=== PATIENT | male | born 1975 | race Caucasian/White ===

== ENCOUNTER 2021-10-20 16:00 | Emergency (ER) | payer OTHER, SELFPAY ==
[2021-10-20 16:00] VITALS: BP 149/97; PULSE 62; RESP 18; TEMP 35.7; O2SAT 98
[2021-10-20 16:01] VITALS: BP 149/97; PULSE 62; RESP 18; TEMP 35.7; O2SAT 98; BMI 29.7
--- NOTE | 2021-10-20 16:33 | EDS_ITS ---
HPI History of Present Illness HPI Narrative: Patient presents with pain in his left hip that began today. Patient states it came on gradually. Patient states his pain is stabbing. Patient states it is mainly over the posterior aspect of his left hip. Patient states it is worse with certain movements. Patient states it is also worse with sitting and with weightbearing. Patient states nothing seems to help with the pain. Patient does admit to some tingling down his left leg into his foot. Patient denies any weakness. Patient denies any bowel or bladder changes. Patient denies any saddle anesthesia. Patient denies any back pain. Patient denies any trauma or injury. Chief Complaint: Lower Extremity Injury Informant: patient Onset/Context/Timing Onset: Today Context: Gradual Onset Timing: Continuous Quality of Pain: Stabbing Location: Left posterior hip Worsened by: Certain movements, sitting, weightbearing Relieved by: Nothing Associated Symptoms Associated Symptoms: Positive for Parasthesia; Negative for Weakness or Loss of Funtion [facility] Medical History (Updated 10/20/21 @ 18:[address] Joni Dorman DO) Anxiety Depression Home Medications gabapentin 300 mg capsule 300 mg PO TID #30 caps 10/20/21 [Rx Last Taken Unknown] naproxen 500 mg tablet 500 mg PO BID PRN #20 tabs 10/20/21 [Rx Last Taken Unknown] venlafaxine 150 mg capsule,extended release 24 hr 150 mg PO DAILY 10/20/21 [History Last Taken Unknown] Allergy/AdvReac Type Severity Reaction Status Date / Time No Known Allergies Allergy Verified 10/20/21 16:03 Social History Smoking Status: Never smoker ROS ROS ED Constitutional Constitutional ED: Denies chills or fever(s) Eyes Eyes: Denies blurry vision or change in vision ENT ENT ED: Denies rhinorrhea or sore throat Cardiovascular Cardiovascular: Denies chest pain or palpitations Respiratory/Chest Respiratory/Chest: Denies cough or dyspnea Gastrointestinal Gastrointestinal: Denies nausea or vomiting Genitourinary Genitourinary ED: Denies dysuria or hematuria Musculoskeletal Musculoskeletal: Denies back pain or neck pain Integumentary Denies abscess or rash Neurologic Neurologic: Reports paresthesias; Denies headache(s) or weakness Allergic/Immunologic Allergic/Immunologic ED: Denies mouth swelling or urticaria EXAM Physical Exam Const Vital Signs: 10/20/21 16:01 10/20/21 16:00 Temperature 96.3 F L 96.3 F L Temperature Source Temporal Temporal Pulse Rate 62 62 Respiratory Rate 18 18 Blood Pressure 149/97 H 149/97 H Blood Pressure Mean 114 114 Pulse Ox 98 98 Oxygen Delivery Method Room Air Room Air Positive well nourished and well developed General Appearance ED: well developed and NAD HEENT Reports moist mucous membranes Neck full ROM Extremity Extremity Narrative: There is tenderness over the posterior aspect of the left hip. There is tenderness over the sciatic notch. There is no bony crepitance or step-off. Range of motion of the left hip was limited secondary to pain. Pedal pulses are equal bilaterally. Strength is 5/5 bilaterally in lower extremities. There are no sensory deficits noted. Deep tendon reflexes are 2+/4 bilaterally in the lower extremities. Neuro Deep Tendon Reflexes: Rt Patellar (L4): 2+, Lt Patellar (L4): 2+, Rt Ankle (S1): 2+ and Lt Ankle (S1): 2+ Deep Tendon Reflexes Back: Rt Patellar (L4): 2+, Lt Patellar (L4): 2+, Rt Ankle (S1): 2+ and Lt Ankle (S1): 2+ Psych mental status grossly normal Skin no wounds MDM MDM MDM Narrative Medical decision making narrative: Patient was given injections of morphine, Toradol, and Norflex here. X-rays of the left hip were obtained. There are 3 views. On my interpretation, there is no acute fracture. There are mild degenerative changes. Radiologist also interpreted the x-rays and agrees. Patient is feeling somewhat better on reevaluation. Patient was given prescriptions for Naprosyn and gabapentin. Patient was instructed to follow-up with his primary care physician in 5 to 7 days. Patient was instructed to continue using ice to the area. Patient understood and was agreeable with the plan. All questions were answered. Radiography Diagnostic Testing: Clinical Impression(s) from Imaging Studies Hip/Pelvis X-Ray 10/20/21 16:45 IMPRESSION: 1. No hip fractures or dislocations. No pelvic bone fractures. 2. Very mild osteoarthritic changes of the lateral aspects of both acetabula. 3. No joint effusions. 4. No osseous inflammatory or neoplastic changes. Electronically Signed: Thiago Bentley MD at 17:17 EDT , Discharge Plan Triage Chief Complaint: Lower Extremity Injury ED Provider: Joni Dorman Dx/Rx/DC Orders Clinical Impression: Sciatica of left side Instructions: ED Sciatica Prescriptions: New naproxen 500 mg tablet 500 mg PO BID PRN Qty: 20 0RF gabapentin 300 mg capsule 300 mg PO TID Qty: 30 0RF No Action venlafaxine 150 mg capsule,extended release 24hr 150 mg PO DAILY Primary Care Provider: Perez Whalen Referrals: Perez Whalen MD [Primary Care Provider] - 3-5 Days Disposition Disposition: Home, Self Care
--- NOTE | 2021-10-20 16:45 | RAD_ITS ---
STUDY: AP PELVIS AND LEFT HIP X-RAY SERIES 1657 HOURS ON 10/20/2021 REASON FOR EXAM: 46-year-old male with left hip injury. TECHNIQUE: 3 views of the pelvis and hip. COMPARISON: None. FINDINGS: No hip fractures or dislocations. Very mild osteoarthritic changes on the lateral aspects of both acetabulum. No joint effusions. No osseous lytic, sclerotic or mass lesions are evident. There is no pelvic bone fractures. Sacroiliac joints and symphysis pubis are normal. RAD/HIP, UNI W/ Pelvis 2-3 Views IMPRESSION: 1. No hip fractures or dislocations. No pelvic bone fractures. 2. Very mild osteoarthritic changes of the lateral aspects of both acetabula. 3. No joint effusions. 4. No osseous inflammatory or neoplastic changes. Electronically Signed: Thiago Bentley MD at 17:17 EDT ,
[2021-10-20] MEDS: Orphenadrine 60 MG/2 ML Ampul IM (17:05)
[2021-10-20] MEDS: Morphine 2 MG/ML Syringe IM (17:05)
[2021-10-20] MEDS: Ketorolac 60 MG/2 ML Vial IM (17:05)
[2021-10-20 18:38] VITALS: BP 136/57; PULSE 71; RESP 15; O2SAT 97
== END 2021-10-20 18:38 | disposition home or self-care (01) ==
PROVIDERS: Emergency Provider Emergency Medicine; PCP Family Medicine; Visit Provider Emergency Medicine
DX: M54.32 Sciatica, left side (principal); F41.9 Anxiety disorder, unspecified; F32.A Depression, unspecified; Z79.899 Other long term (current) drug therapy
CPT/HCPCS: 73502; 96372; 99282

== ENCOUNTER → 2024-01-20 | Outpatient (CLI) | payer SELFPAY ==
--- NOTE | 2024-01-20 10:01 | MRI_ITS ---
STUDY: MRI CERVICAL SPINE WITHOUT CONTRAST REASON FOR EXAM: Male, 48 years old. CERVICAL DISC DISORDER AT C5-C6 LEVEL WITH RADICULOPATHY LEFT TECHNIQUE: Standardized fat and water weighted pulse sequences were obtained in the sagittal and axial planes. COMPARISON: None FINDINGS: Normal foramen magnum and brainstem-cervical cord junction. Normal craniovertebral junction. Normal anterior atlantoaxial articulation. Normal odontoid process. There is straightening of the normal cervical lordosis. Normal vertebral bodies and posterior osseous elements. C2-3: Mild left facet hypertrophy produces mild left neural foraminal stenosis. No central spinal stenosis. C3-4: Mild bilateral disc osteophyte complex and right uncovertebral hypertrophy produces moderate spinal stenosis with abutment of the right hemicord and moderate right neural foraminal stenosis. C4-5: Moderate bilobed disc osteophyte complex produces moderate spinal stenosis with abutment of the central spinal cord and moderate bilateral neural foraminal stenosis. C5-6: Mild bilateral disc osteophyte complex result in mild spinal stenosis C6-7: Mild broad disc osteophyte complex results in mild spinal stenosis and mild bilateral neural foraminal stenosis. C7-T1: Normal endplates. Normal disc height, signal and morphology. Normal central canal and intervertebral neural foramina. Normal cervical cord. Normal visualized soft tissue structures. MRI/Spine Cervical (Routine) IMPRESSION: Multilevel degenerative changes, as described above. Electronically Signed: Cornelio Murry MD at 10:27 [facility] ,
== END | disposition home or self-care (01) ==
PROVIDERS: Referring Provider Chiropractor; Visit Provider Chiropractor
DX: M50.122 Cervical disc disorder at C5-C6 level with radiculopathy (principal)
CPT/HCPCS: 72141

== ENCOUNTER → 2024-04-18 | Outpatient (CLI) | payer SELFPAY ==
--- NOTE | 2024-04-18 07:02 | US_ITS ---
PROCEDURE: ABDOMEN LIMITED REASON FOR EXAM: Right upper quadrant pain. COMPARISON: None provided. FINDINGS: Liver: The liver is measured at 50.1 cm in length. Diffuse fatty infiltration of the liver is seen.. No focal hepatic process is noted. Hepatopetal flow is seen. Gallbladder: No stones, sludge, wall thickening or tenderness. The gallbladder is measured at 7.8 cm in length. No evidence of significant gallbladder wall thickening or pericholecystic fluid collection. No sonographic Tan's sign was elicited. Common bile duct: Obscured by overlying bowel gas. Pancreas: Mostly obscured by overlying bowel gas, but without apparent abnormality. The right kidney is measured at 11.7 x 7.4 x 7.0 cm. Right renal cortex measured at 25 mm. Visualized portions of the right kidney are unremarkable. No right upper quadrant ascites. US/Abdomen Limited IMPRESSION: 1. Diffuse fatty infiltration of the liver. No evidence of hepatomegaly. 2. Both the common bile duct of the pancreas are obscured by overlying bowel ga s. 3. No evidence of acute disease. Reading Location: [id number]
== END | disposition home or self-care (01) ==
LOC: US 07:00
PROVIDERS: PCP Nurse Practitioner Family; Referring Provider Nurse Practitioner Family; Visit Provider Nurse Practitioner Family
DX: R10.11 Right upper quadrant pain (principal)
CPT/HCPCS: 76705

== ENCOUNTER → 2024-05-26 | Outpatient (CLI) | payer OTHER, SELFPAY ==
--- NOTE | 2024-05-26 08:02 | CT_ITS ---
EXAM: CT Chest With Intravenous Contrast CLINICAL INDICATION: ATELECTASIS TECHNIQUE: Axial computed tomography images of the chest with intravenous contrast. This CT exam was performed using one or more of the following dose reduction techniques: automated exposure control, adjustment of the mA and/or kV according to patient size, and/or use of iterative reconstruction technique. COMPARISON: No relevant prior studies available. FINDINGS: ARTIFACTS: Motion artifact. LUNGS AND PLEURAL SPACES: Dependent atelectasis. Otherwise, no focal consolidation pneumothorax or pleural effusion. HEART: Cardiomegaly. No significant pericardial effusion. No significant coronary artery calcifications. BONES/JOINTS: Cortical irregularity of the left 3rd rib could be a nondisplaced fracture. This is best visualized on the sagittal view on axial image 263. No dislocation. SOFT TISSUES: Unremarkable. VASCULATURE: Unremarkable. No thoracic aortic aneurysm. LYMPH NODES: Unremarkable. No enlarged lymph nodes. LIVER: Fatty liver. CT/Chest WITH Contrast IMPRESSION: 1. Cortical irregularity of the left 3rd rib could be a nondisplaced fracture. 2. Dependent atelectasis. Otherwise, no focal consolidation pneumothorax or p leural effusion. Reading Location: [facility]
== END | disposition home or self-care (01) ==
PROVIDERS: PCP Nurse Practitioner Family; Referring Provider Nurse Practitioner Family; Visit Provider Nurse Practitioner Family
DX: J98.11 Atelectasis (principal)
CPT/HCPCS: 71260; Q9967

== ENCOUNTER → 2024-05-27 | Outpatient (CLI) | payer OTHER, SELFPAY ==
--- NOTE | 2024-05-27 11:26 | NM_ITS ---
PROCEDURE: HEPATOBILLIARY IMG W/PHARM INT 05/27/2024 REASON FOR EXAM: RIGHT UPPER QUADRANT PAIN TECHNIQUE: Intravenous Choletec with planar imaging of the abdomen. RADIOPHARMACEUTICAL: 5.6 mCi of technetium labeled mebrofenin. COMPARISON: None. FINDINGS: There is good uptake of the radiopharmaceutical by the liver. Nonvisualization of the gallbladder at 2 hours. NM/Hepatobilliary Img w/Pharm Int IMPRESSION: Nonvisualization of the gallbladder up to 2 hours. Cholecystitis should be rul ed out. Reading Location: [facility]
== END | disposition home or self-care (01) ==
LOC: NM 11:24
PROVIDERS: PCP Nurse Practitioner Family; Referring Provider Nurse Practitioner Family; Visit Provider Nurse Practitioner Family
DX: R10.11 Right upper quadrant pain (principal)
CPT/HCPCS: 78227; A9537

== ENCOUNTER → 2024-06-09 | Outpatient (CLI) | payer OTHER, SELFPAY ==
[2024-06-09 12:24] LABS: AST(SGOT) 28 U/L (<=37); Alanine Aminotransfer ALT/SGPT 34 U/L (<=46); Albumin, Serum 4.4 g/dL (3.5-5.0); Alkaline Phosphatase 92 U/L (40-129); Bilirubin, Direct 0.16 mg/dL (0.00-0.30); Globulin 2.9 g/dL (2.2-4.2); Hepatitis B Surface Antigen Nonreactive (Nonreactive); Hepatitis C Antibody Nonreactive (Nonreactive); Protein, Total 7.3 g/dL (5.9-8.4); Total Bilirubin 0.53 mg/dL (0.00-1.30)
[2024-06-09 16:44] LABS: Hepatitis B Surface Antibody Nonreactive
[2024-06-10 05:07] LABS: Hepatitis A AB, Total Negative (Negative); Hepatitis B Core Ab Total Negative (Negative)
== END | disposition home or self-care (01) ==
LOC: LAB 08:43
PROVIDERS: PCP Nurse Practitioner Family; Referring Provider Nurse Practitioner Acute Care; Visit Provider Nurse Practitioner Acute Care
DX: R10.11 Right upper quadrant pain (principal); R11.0 Nausea; K76.0 Fatty (change of) liver, not elsewhere classified
CPT/HCPCS: 80076; 86704; 86706; 86708; 86803; 87340

== ENCOUNTER 2024-08-16 06:11 | Inpatient (IN) | payer OTHER, SELFPAY ==
[2024-08-16] VITALS (18 sets, daily range): BP systolic 93–175; BP diastolic 55–112; PULSE 57–79; RESP 16–18; TEMP 2.4–36.5; O2SAT 92–99; BMI 32.6; BMI 28.8
--- NOTE | 2024-08-16 06:19 | CT_ITS ---
PROCEDURE: ABDOMEN/PELVIS W IV CONT ONLY 08/16/2024 REASON FOR EXAM: CONSTIPATION, JAUNDICE TECHNIQUE: Abdomen and pelvis CT with intravenous contrast. Coronal and Sagittal reconstruction series were provided. PATIENT PREPARATION: Per protocol ORAL CONTRAST TYPE: None. CONTRAST: Isovue-350 VOLUME: 100 mL One or more dose reduction techniques were used (e.g., Automated exposure control, adjustment of the mA and/or kV according to patient size, use of iterative reconstruction technique. RADIATION DOSE SUMMARY: CTDlvol: 22.05 mGy DLP: 1360 mGycm COMPARISON: 05/27/2024. FINDINGS: 4 mm obstructing stone of the most distal aspect of the common bile duct. Dilated common bile duct measuring 13.4 mm. Diffuse thickening enhancement of the wall of the common bile duct, biliary tree and the distended, diffusely thickened gallbladder suspicious for ascending cholangitis. Associated acute inflammatory pathology of the gallbladder is considered. No evidence of perforation or abscess formation. Mild bilateral basilar atelectatic pulmonary changes. Normal liver. Normal spleen. Normal pancreas. Normal bilateral adrenal glands. Normal size of the right kidney. There is no right renal mass. There are no right renal calculi. There is no right hydronephrosis. Normal visualized right ureter. Normal size of the left kidney. There is no left renal mass. There are no left renal calculi. There is no left hydronephrosis. Normal visualized left ureter. Normal visualized stomach. Normal small intestine. Normal colon. The appendix is not visualized. No CT evidence of acute appendicitis. There is no demonstrated peritoneal fluid. Normal abdominal aorta. Normal inferior vena cava. Normal retroperitoneum. Normal urinary bladder. There is no pelvic mass lesion or lymphadenopathy. There is no pelvic fluid. Normal abdominal wall. Mild diffuse spondylosis. CT/Abdomen/Pelvis W IV Cont ONLY IMPRESSION: 4 mm obstructing stone of the most distal aspect of the common bile duct. Dilated common bile duct measuring 13.4 mm. Diffuse thickening enhancement of the wall of the common bile duct, biliary martin e and the distended, diffusely thickened gallbladder suspicious for ascending cholangitis. Associated acute inflammatory pathology of the gallbladder is also considered. No evidence of perforation or abscess formation. Mildly dilated intrahepatic biliary tree. Mild bilateral basilar atelectatic pulmonary changes. Reading Location: [place] [id number]
--- NOTE | 2024-08-16 06:20 | EX.ED.DYSGE1 ---
HPI History of Present Illness Chief Complaint: Constipation Narrative Narrative: Patient is a 49-year-old male with past medical history of anxiety, depression, Hirschsprung's disease who presented to the emergency department with chief complaint of constipation. Patient states that he has been constipated for about a week and his last bowel movement that was normal was around Thursday. He states that he tried several [id number] medications and this has not helped him and going to the bathroom. He states that he has had some intermittent nausea and vomiting associated with this. Patient states he is unsure if he has had any weight loss. 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 Bone fracture Cataracts, bilateral Anxiety Depression Home Medications ?Medication ?Instructions ?Recorded ?Last Taken ?Type venlafaxine 150 mg 150 mg PO DAILY 06/09/24 Unknown History capsule,extended release 24 hr Allergy/AdvReac Type Severity Reaction Status Date / Time No Known Allergies Allergy Verified 08/16/24 06:11 Family History Other Diabetes Heart disease Hypertension Thyroid disorder Social History Smoking Status: Never smoker alcohol intake: current Alcohol type: beer substance use type: does not use what type of physical activity do you participate in: none ROS ROS ED ROS Narrative Constitutional: Denies fevers, chills, headaches, lightness, dizziness Eyes: Denies change in vision double vision blurry vision Cardiovascular: Denies chest pain Respiratory: Denies shortness of breath Abdomen: Complains constipation as noted above and abdominal pain as well as nausea and vomiting denies diarrhea : Denies urinary symptoms Neurological: Denies numbness, weakness, tingling Musculoskeletal: Denies back pain Skin: Denies rashes or lesions EXAM Physical Exam Narrative Exam Narrative: General: Patient lying in bed rest comfortably did not appear to be in acute distress Head: Atraumatic, normocephalic Eyes: PERRL bilaterally, EOMI bilaterally, patient has conjunctival icterus noted Neck: Soft, supple, trachea midline Cardiovascular: Regular rate and rhythm Respiratory: Clear to auscultation bilaterally Abdomen: Soft, nondistended, tenderness to palpation in the epigastric region as well as the left lower quadrant no rebound or guarding on exam Extremities: +5/5 strength noted in the bilateral upper and lower extremities, radial pulses +2/4 in the bilateral extremities Neurological: Patient following commands knew that he was at [facility] the year is 2024 Skin: Warm, dry, intact no rashes or lesions noted Const Vital Signs: 08/16/24 06:11 Temperature 97.7 F L Temperature Source Oral Pulse Rate 65 Respiratory Rate 18 Blood Pressure 174/111 H Blood Pressure Mean 132 Pulse Ox 97 Oxygen Delivery Method Room Air MDM MDM MDM Narrative Medical decision making narrative: Patient is a 49-year-old male who presented to the emergency department chief complaint of constipation. On the differential diagnosis includes but not limited to constipation, AAA, cholangitis, pancreatitis, pancreatic cancer. Once workup is obtained and reviewed he will be reevaluated. Patient be given IV fluids. Patient CBC reviewed showed no evidence leukocytosis white blood count normal at 6.9, hemoglobin 16.2, platelet count normal at 209. Patient sodium normal 137, potassium normal 3.7, creatinine was 1.01. Patient glucose was 130 anion gap normal at 11. Patient's total bilirubin elevated at 6.34 with a direct bilirubin elevated to 4.67. Patient AST and ALT does show evidence of transaminitis with 194 and 649 respectively on 06/09/2024 patient's liver enzymes were normal as well as his total bilirubin and direct bilirubin. Patient lipase normal at 38. Patient's CT abdomen pelvis with IV contrast still pending therefore this will be signed out to oncoming provider to see note for details on read and disposition. Lab Data Labs: Laboratory Results - last 24 hr 08/16/24 06:28 WBC 6.9 RBC 5.20 Hgb 16.2 Hct 46.3 MCV 89.0 MCH 31.2 MCHC 35.0 RDW Std Deviation 44.9 H RDW Coeff of [place] 13.7 Plt Count 209 MPV 10.7 Immature Gran % (Auto) 0.400 Neut % (Auto) 72.4 H Lymph % (Auto) 15.7 L [place] % (Auto) 8.6 Eos % (Auto) 2.2 Baso % (Auto) 0.7 Absolute Neuts (auto) 5.0 Absolute Lymphs (auto) 1.09 Nucleated RBC % 0 Sodium 137 Potassium 3.7 Chloride 98 Carbon Dioxide 27.8 Anion Gap 11 BUN 9 Creatinine 1.01 Estim Creat Clear Calc 116.16 Est GFR (MDRD) Non-Af 91 BUN/Creatinine Ratio 9.0 L Glucose 130 H Calcium 9.1 Total Bilirubin 6.34 H Direct Bilirubin 4.67 H AST 194 H ALT 649 H Alkaline Phosphatase 223 H Total Protein 7.2 Albumin 4.3 Globulin 2.9 Albumin/Globulin Ratio 1.5 Lipase 38 Discharge Plan Triage Chief Complaint: Constipation ED Provider: Aiden Tanner Dx/Rx/DC Orders Prescriptions: No Action venlafaxine 150 mg capsule,extended release 24hr 150 mg PO DAILY Primary Care Provider: Zeny Charlton Referrals: Zeny Charlton, [employer] [Primary Care Provider] - Print Language: Turkish
[2024-08-16] MEDS: 0.9% Normal Saline (1000mL) 1,000 ML 999 ML IV (06:34)
[2024-08-16 06:36] LABS: Absolute Lymphocyte Count 1.09 X10^3/uL (0.83-4.51); Basophil# 0.05 X10^3/uL; Basophil% 0.7 % (0-1); Eosinophil# 0.15 X10^3/uL; Eosinophils% 2.2 % (0-5); Hematocrit 46.3 % (40-54); Hemoglobin 16.2 g/dL (13.0-16.5); Lymphocyte # 1.09 X10^3/ul (0.83-4.51); Lymphocyte % 15.7 % (19-41); Mean Corpuscular Hgb 31.2 pg (27.0-32.0); Mean Platelet Vol. 10.7 fl (6.2-12.0); Monocyte% 8.6 % (0-10); NRBC Flagged by Analyzer 0 % (0-5); Neutrophil # 5.02 X10^3/uL (2.7-7.7); Neutrophil % 72.4 % (47-70); Platelet Count 209 K/mm3 (150-450); RBC Distribution Width CV 13.7 % (11.6-14.6); RBC Distribution Width SD 44.9 fl (35.1-43.9); White Blood Count 6.9 K/mm3 (4.4-11.0)
--- OUTSIDE RECORDS SUMMARY | 2024-08-16 06:42 | XMS RPT_ITS | CCD ---
Author Organization [facility] Care Team Providers Care Spa Coordinator Name Role Phone Perez Whalen Unavailable Unavailable Perez Whalen Unavailable Unavailable Perez Whalen Unavailable Unavailable Unavailable Primary Care Provider UnavailLINDA Campbell Referring Unavailable Unavailable Primary Care Provider Unavailabl e Unavailable Primary Care Provider Unavailabl e System, Provider Not In Primary Care Provider Un available DANELLE HOFFMANN Referring Unava ilable STINEMETZDANELLE Admitting Unava ilable TRACY TSE Attending Unavail able SYSTEM, PROVIDER NOT IN Primary Care Unavaila ble TRACY TSE Referring Unavail able BONASSOTRACY Referring Unavail able BONASSOTRACY Referring Unavail able BONASSO, TRACY BROWN Referring Unavail able BONASSO, TRACY BROWN Referring Unavail able NO, PHYSICIAN Primary Care Unavailable DAVE CHARLTON Referring UnavailDAVE Andrew Attending Unavailzuleika Charlton BAKERY TEAM LEADER-CDave Primary Care Provider Zoltan BAKERY TEAM LEADER-Dave Fung Attending Provider Zoltan BAKERY TEAM LEADER-CDave Referring Provider Rohan BAKERY TEAM LEADER-Lana Fung Attending Provider Rohan BAKERY TEAM LEADER-Lana Fung Referring Provider Dave Charlton Primary Care UnavailDave Andrew Attending UnavailDave Andrew Referring UnavailDave Andrew Primary Care UnavailLana Rutledge Attending Unavailable Lana Madrigal Referring Unavailable Dave Charlton Primary Care Unavailabl Ehsan Gupta Attending Unavailable Dave Charlton Primary Care Dave Girard Attending Dave Girard Referring Dave Girard Primary Care UnavailLana Rutledge Attending Dave Reyes Referring Unavailabl e Care Physician, No Primary Primary Care Unava ilDanelle Sanchez Attending Danelle Beverly Referring Dave Reyes Primary Care Lakia Charlton, Dave Benitez Attending Heatherzuleika Charlton, Dave Eli Referring Unavailzuleika e Allergies Allergy Classification Reported Allergen(s) Allergy Type Date of Onset Reaction(s) Facility (1 source) No Known Medication Allergies; Translations: [No Known Medication Allergies] Propensity to adverse reactions to drug (disorder) [facility] Repository (1 source) ALLERGIES NOT ON FILE; Translations: [ALLERGIES NOT ON FILE] Propensity to adverse reactions (disorder) [facility] 2 Repository Medications Current Medications Medication Drug Class(es) Dates Sig (Normalized) Sig (Original) doxycycline monohydrate 100 mg oral capsule (2 sources) Tetracycline-class Drug Start: 04-02-2022 doxycycline monohydrate (MONODOX) 100 mg capsule 04/02/2022 Active glucosamine/msm/ch ondrt/C/hyal (GLUCOSAMINE-CHOND ROITIN-MSM ORAL) (1 source) take 3 capsules by mouth once daily glucosamine/msm/c hondrt/C/hyal (GLUCOSAMINE-ADAM DROITIN-MSM ORAL) Take 3 capsules by mouth once daily . Active lidocaine 0.05 mg/mg medicated patch (1 source) Antiarrhythmic, Amide Local Anesthetic Start: 05-09-2022 End: 05-23-2022 lidocaine (LIDODERM) 5 % Indications: Pain Apply 1 Patch as directed once daily for 14 days. Remove old patch prior to placing new patch. Location: on for 12 hours and then off for 12 hours before a new patch is palced. 14 Patch 0 05/09/2022 05/23/2022 Active Comment on above: Apply 1 Patch as dir ected once daily for 14 days. Remove old patch prior to placing new patch. Location: on for 12 hours and then off for 12 hours before a new patch is palced. ondansetron 4 mg oral tablet (1 source) Serotonin-3 Receptor Antagonist Start: 06-09-2024 take 2 tablets by mouth every two hours as needed, then take 1 tablet by mouth every four hours as needed Ondansetron Hcl 4 mg tablet Active 4 mg PO .COMPLEX June 09, 2024 12:00am 4 mg orally; take two tablets PO two hours prior to start of bowel prep and one every 4 hours as needed for N/V Sod Sulf-Pot Chloride-Mag Sulf (1 source) Start: 06-09-2024 Sod Sulf-Pot Chloride-Mag Sulf (Sutab) 1.479-0.188- 0.225 gram tablet Active 0 PO per package directions June 09, 2024 12:00am as directed for split dose bowel prep turmeric root extract 500 mg Tab (1 source) take 1 tablet by mouth once daily turmeric root extract 500 mg Tab Take 1 (one) tablet (500 mg total) by mouth once daily . Active 24 hr venlafaxine 150 mg extended release oral capsule (7 sources) Serotonin and Norepinephrine Reuptake Inhibitor Start: 04-22-2022 venlafaxine ER (EFFEXOR XR) 150 mg 24 hr capsule 04/22/2022 Active Start: 10-20-2021 End: 06-09-2024 take 1 capsule by mouth once daily Venlafaxine 150 mg capsule,extended release 24hr Active 75 mg PO DAILY June 09, 2024 7:49am Vitamin B Complex (1 source) take 1 tablet by marian th once daily b complex vitamins tablet Take 1 (one) tablet by mouth daily . Active Completed/Discontinued Medications Medication Drug Class(es) Dates Sig (Normalized) Sig (Original) gabapentin 300 mg oral capsule (3 sources) Anti-epileptic Agent Start: 10-20-2021 End: 06-09-2024 take 1 capsule by mouth three times daily Gabapentin 300 mg capsule Discontinued 300 mg PO THREE TIMES A DAY October 20, 2021 12:00am June 09, 2024 7:49am naproxen 500 mg oral tablet (3 sources) Nonsteroidal Anti-inflammatory Drug Start: 10-20-2021 End: 06-09-2024 take 1 tablet by mouth twice daily as needed Naproxen 500 mg tablet Discontinued 500 mg PO TWICE DAILY NEEDED October 20, 2021 12:00am June 09, 2024 7:49am Problems Active Problems Problem Classification Problem Date Documented Da te Episodic/Chronic Abdominal pain (3 sources) Right upper quadrant pain; Translations: [Right upper quadrant pain] Onset: 06-14-2024 06-09-2024 Episodic Headache; including migraine (1 source) Headache; Translations: [Headache] 06-09-2024 Episodic Nausea and vomiting (3 sources) Nausea; Translations: [Nausea] Onset: 06-09-2024 06-09-2024 Episodic Other connective tissue disease (7 sources) Other symptoms and signs involving the musculoskeletal system; Translations: [Other musculoskeletal symptoms referable to limbs] Onset: 02-22-2024 02-22-2024 Episodic Other gastrointestinal disorders (1 source) Finding of abdomen; Translations: [Other specified symptoms and signs involving the digestive system and abdomen] 06-09-2024 Episodic Other gastrointestinal disorders (1 source) Other specified symptoms and signs involving the digestive system and abdomen; Translations: [Other specified symptoms and signs involving the digestive system and abdomen] Onset: 06-09-2024 Episodic Other liver diseases (2 sources) Steatosis of liver; Translations: [Fatty (change of) liver, not elsewhere classified] 06-09-2024 Chronic Other liver diseases (1 source) Fatty (change of) liver, not elsewhere classified; Translations: [Fatty (change of) liver, not elsewhere classified] Onset: 06-09-2024 Chronic Other non-traumatic joint disorders (2 sources) Pain in left shoulder; Translations: [Pain in left shoulder] Onset: 03-15-2024 Episodic Other screening for suspected conditions (not mental disorders or infectious disease) (3 sources) Patient encounter status; Translations: [Encounter for screening for malignant neoplasm of colon] Onset: 06-09-2024 06-09-2024 Episodic Pleurisy; pneumothorax; pulmonary collapse (1 source) Atelectasis; Translations: [Atelectasis] Onset: 06-03-2024 Episodic Residual codes; unclassified (2 sources) Pain; Translations: [Pain, unspecified] Episodic Residual codes; unclassified (3 sources) Pain, unspecified; Translations: [Pain] Onset: 05-09-2022 Episodic Spondylosis; intervertebral disc disorders; other back problems (20 sources) Cervical disc disorder; Translations: [Cervical disc disorder, unspecified, unspecified cervical region] Onset: 02-22-2024 01-22-2024 Chronic Unclassified (3 sources) Weakness of left upper extremity 02-22-2024 Past or Other Problems Problem Classification Problem Date Documented Da te Episodic/Chronic Spondylosis; intervertebral disc disorders; other back problems (4 sources) Disorder of left sciatic nerve; Translations: [Sciatica, left side] Onset: 02-18-2024 10-28-2021 Episodic Results Test Name Value Interpretation Reference Range [facility]. COMMENT Normal . [facility] Comment on above: Order Comment: [id number] ELF TEST RED RF Result Comment: Test Ordered: [id number] Enhanced Liver Fibrosis (ELF) ELF(TM) Score 10.56 [H ] Reference Range: <9.80 ELF(TM) Score Interpretation: Risk cut-offs to assess the likelihood of progression to cirrhosis and liver-related clinical events within 3.9 years following baseline ELF score (IQR: 14.0-22.4 months)*: Lower risk < 9.80 Mid risk 9.80 - 11.29 Higher risk >11.29 Note: The ELF(TM) Score is a unitless numerical value. *Maninder SA, Fracisco VW, Alexa T, et al. Selonsertib for patients with bridging fibrosis or compensated cirrhosis due to SHAIKH: Results from randomized phase III STELLAR trials. J Hepatol. 2020 Sep;73(1):26-39. Performed at: [address] [id number] Emergency Room Doctor: Vinicius Combs MD, Phone: [phone] Performed at: [address] [id number] Emergency Room Doctor: Félix Garza PhD, Phone: [phone] Performed By: #### L 3895.2316, G600.4692, L3100.0460, L3100.0300, L3990.6549, E8759.8326, S0483.1530 #### [facility] [address] [place], [place], [id number] Hepatitis A AB, Totalon 04-0 HEPATITIS A,TOT Negative Normal Negative [facility] Comment on above: Result Comment: Comm ent: The HAV total antibody assay detects both IgG and IgM but does not differentiate between them. A negative result suggests susceptibility to infection. A positive result could be due to vaccination, previously resolved infection or active infection. Testing for HAV IgM should be performed if active HAV infection is suspected. [facility] offers profiles that will automatically reflex positive HAV total antibody results to IgM (e.g., panel #[id number] HAV Antibody w/ Rfx). Performed at: [address] [id number] Emergency Room Doctor: Félix Garza PhD, Phone: [phone] Performed By: #### L 3890.6202, L500.3400, L3100.0460, L3100.0300, L3890.6102, L3410.9998, L3890.6301 #### [facility] [address] [place], [place], [id number] Hepatitis B Core Ab Totalon 06-10-2024 HEP B CORE,TOT Negative Normal Negative [facility] Comment on above: Performed By: #### L 3890.6202, L500.3400, L3100.0460, L3100.0300, L3890.6102, L3410.9998, L3890.6301 #### [facility] [address] [place], [place], [address] Bilirubin directOrdered By: Lana Madrigal on 06-09-2024 Bilirubin.direct [Mass/Vol] 0.16 mg/dL 0.00-0.[address] [facility] Bilirubin, totalOrdered By: Lana Madrigal on 06-09-2024 Bilirubin [Mass/Vol] 0.53 mg/dL 0.00-1.30 [facility] Gastroenterology Visit Repor ton 06-09-2024 Gastroenterology Visit Report [facility] [address] [place] [address] OFFICE VISIT Date of Service: 06/09/24 MR#: [id number] Acct: [id number] Name: ROOSEVELT ELLIOTT Rep #: [id number] : 1975 Provider: AICHA bronson Age/Sex: 49/M [place] [facility] [place]: [place]igned Intake Vital Signs 10/20/21 16:01 06/09/24 07:59 Height 6 ft 1 in 6 ft 1 in Weight: 240 lb 2 oz BMI 31.6 BP 131/83 H Respiration 18 Pulse 87 Pulse Oximetry (%) 92 Oxygen Delivery Method room air Intake Visit Reasons: Abdominal complaints Chief Complaint: abdominal pain Sheep Or Calf Grader Required: No Is patient in pain?: No Allergies No Known Allergies Allergy (Verified 06/09/24 07:54) Nurse's Note: Has had abdominal pain for 3 years off and on. [facility] Medical History Bone fracture Cataracts, bilateral Anxiety Depression Family History Other Diabetes Heart disease Hypertension Thyroid disorder Social History Smoking Status: Never smoker alcohol intake: current Alcohol type: beer substance use type: does not use what type of physical activity do you participate in: none HPI HPI Chief Complaint: abdominal pain Details: ROOSEVELT ELLIOTT, is a 49 M who presents to the office today for HIDA performed 05/27/2024 nonvisualization of the gallbladder up to 2 hours. Cholecystitis should be ruled out. 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 CXR on 05/09/2024 low lung volume with bibasilar atelactasis denies any family h/o colon CA ROS Const Constitutional: No fatigue, fever(s) or weight change ENT ENT: No difficulty swallowing Gastro GI: Positive for heartburn; No abdominal pain, belching, bloating, change in bowel habits, change in stool character, coffee ground emesis, constipation, cramping, diarrhea, difficulty swallowing, feeling full early, excessive flatus, incontinent of stools, Vomiting blood/hematemesis, Blood in stool, loose stools, Black,tarry stools, nausea/dyspepsia, pain with swallowing, vomiting or other Musc Musculoskeletal: Positive for muscle weakness and sciatica; No joint pain Skin Skin: No yellowing of the eye or itchy eyes Psych Psychiatric: No anxiety and No depression Endo Endocrine: No fatigue or weight change Aller/Imm Allergy/Immunologic: No itchy eyes Brant/Lymp Hematologic/Lymphatic: No easy bleeding or easy bruising Exam Const General: cooperative, healthy appearing, no acute distress and well developed Nutritional Appearance: average body habitus and well nourished Orientation: alert and oriented x3 HENMT Head: normocephalic Ears: hearing grossly normal bilaterally Mouth: moist mucous membranes Teeth and gingiva: dentition normal Eyes Conjunctivae: conjunctivae normal Sclera: sclerae normal Neck Neck: normal visual inspection, full ROM and trachea midline Resp Effort Inspection: normal respiratory effort, able to speak in complete sentences and symmetric chest movement Auscultation: Bilateral: Clear to Auscultation Cardio Palpation: normal PMI Rate: regular rate Rhythm: regular rhythm Heart Sounds: S1 normal and S2 normal GI Inspection: normal to inspection Auscultation: normal bowel sounds Palpation: soft and no hepatosplenomegaly Rectal Exam: deferred Skin General: no rashes or lesions noted and turgor normal Neuro General: patient alert and patient oriented x3 Cranial Nerves: other (CN's grossly intact, non-focal exam) Cognition: normal cognition Speech: speech normal Gait: normal gait Extrem General: normal to inspection (no edema noted) Psych Appearance: grossly normal and well kempt Affect: normal affect Attitude: cooperative Thought Process: normal Assessment and Plan Assessment and Plan (1) Abdominal symptoms: (2) RUQ pain: Status: Acute (3) Nausea: Status: Acute (4) Steatosis, liver: Status: Acute (5) Encounter for screening colonoscopy: Status: Acute Orders: Orders Liver Profile Today K76.0 - Fatty (change of) liver, not elsewhere classified, R10.11 - Right upper quadrant pa (more content not included)... Normal [facility] HBV core Ab Ql (S)Ordered By : Lana Madrigal on 06-09-2024 Hepatitis B Core Total Antibody Negative Negative [facility] HBV surface Ab Ql (S)Ordered By: Lana Madrigal on 06-09-2024 Hepatitis B Surface Antibody Non-Reactive [facility] Comment on above: <8.5 mIU/mL: Non-Karishma ctive8.5<= x <11.5 mIU/mL: Indeterminate>=11.5 mIU/mL: Reactive Non Reactive: Inconsistent with immunity less than <10 mIU/mL Reactive: Consistent with immunity greater than or equal to 10 mIU/mL HBV surface Ag Ql (S)Ordered By: Lana Madrigal on 06-09-2024 Hepatitis B Surface Antigen Non-Reactive Nonreactive [facility] Comment on above: Reactive: Presumptiv e evidence of HBV. Repeatedly reactive samples must be confirmed using a neutralization test ([employer] HBsAg Confirmatory Test)Non-Reactive: HBsAg not detected; does not exclude the possibility of exposure to HBV Hepatitis A virus total anti body assayOrdered By: Lana Madrigal on 06-09-2024 Hepatitis A Antibody Total Negative Negative [facility] Comment on above: Comment: The HAV tot al antibody assay detects both IgG andIgM but does not differentiate between them. A negativeresult suggests susceptibility to infection. A positiveresult could be due to vaccination, previously resolvedinfection or active infection. Testing for HAV IgM shouldbe performed if active HAV infection is suspected. [facility] that will automatically reflex positive HAVtotal antibody results to IgM (e.g., panel #[id number] HAVAntibody w/ Rfx).Performed at: [facility] [id number] Director: Félix Garza PhD, Phone: [phone] Hepatitis B Surface Antibody on 06-09-2024 HEP B Surf Ab Non-Reactive Normal [facility] Comment on above: Result Comment: <8.5 mIU/mL: Non-Reactive 8.5<= x <11.5 mIU/mL: Indeterminate >=11.5 mIU/mL: Reactive Non Reactive: Inconsistent with immunity less than <10 mIU/mL Reactive: Consistent with immunity greater than or equal to 10 mIU/mL Performed By: #### L 3890.6202, L500.3400, L3100.0460, L3100.0300, L3890.6102, L3410.9998, L3890.6301 #### [facility] [address] [place], [address] Hepatitis C Antibodyon 06-09 Hepatitis C Ab Non-Reactive Normal Nonreactive [facility] Comment on above: Result Comment: Reac tive: Presumptive evidence of antibodies to HCV. Follow CDC recommendations for supplemental testing. Non-Reactive: Antibodies to HCV were not detected; does not exclude the possibility of exposure to HCV Reactive Results are presumptive evidence of antibodies to HCV. Follow CDC recommendations for supplemental testing. Order confirmation testing: HCV Quant by PCR testing - HCVPCR lc#[id number] Non Reactive: < 0.8 Equivocal: >/= 0.8 to < 1.0 Reactive: >/= 1.0 The CDC requires that a reactive/equivocal HCV antibody result be sent out for confirmation. HCV Quant by PCR testing. Performed By: #### L 3890.6202, L500.3400, L3100.0460, L3100.0300, L3890.6102, L3410.9998, L3890.6301 #### [facility] [address] [place], [place], [id number] Hepatitis C antibodyOrdered By: Lana Madrigal on 06-09-2024 Hepatitis C Antibody Non-Reactive Nonreactive [facility] Comment on above: Reactive: Presumptiv e evidence of antibodies to HCV. Follow CDC recommendations for supplemental testing.Non-Reactive: Antibodies to HCV were not detected; does not exclude the possibility of exposure to HCVReactive Results are presumptive evidence of antibodies to HCV. Follow CDC recommendations for supplemental testing.Order confirmation testing: HCV Quant by PCR testing - HCVPCR lc#[id number] Non Reactive: < 0.8 Equivocal: >/= 0.8 to < 1.0 Reactive: >/= 1.0The CDC requires that a reactive/equivocal HCV antibody result be sent out for confirmation. HCV Quant by PCR testing. L3890.6102on 06-09-2024 HEP B Surf Ag Non-Reactive Normal Nonreactive [facility] Comment on above: Result Comment: Reac tive: Presumptive evidence of HBV. Repeatedly reactive samples must be confirmed using a neutralization test ([employer] HBsAg Confirmatory Test) Non-Reactive: HBsAg not detected; does not exclude the possibility of exposure to HBV Performed By: #### L 3890.6202, L500.3400, L3100.0460, L3100.0300, L3890.6102, L3410.9998, L3890.6301 #### [facility] [address] [place], [address] Laboratory - Chemistry and C hemistry - challengeOrdered By: Lana Madrigal on 06-09-2024 AST [Catalytic activity/Vol] 28 U/L <[address] [facility] Liver Profileon 06-09-2024 Albumin [Mass/Vol] 4.4 g/dL Normal 3.5-5.0 [facility] Comment on above: Performed By: #### L 3890.6202, L500.3400, L3100.0460, L3100.0300, L3890.6102, L3410.9998, L3890.6301 #### [facility] [address] [place], [address] ALK PHOS 92 U/L Normal 40-[address] [facility] Comment on above: Performed By: #### L 3890.6202, L500.3400, L3100.0460, L3100.0300, L3890.6102, L3410.9998, L3890.6301 #### [facility] [address] [place], [address] ALT [Catalytic activity/Vol] 34 U/L Normal <=[address] [facility] Comment on above: Performed By: #### L 3890.6202, L500.3400, L3100.0460, L3100.0300, L3890.6102, L3410.9998, L3890.6301 #### [facility] [address] [place], [address] AST [Catalytic activity/Vol] 28 U/L Normal <=[address] [facility] Comment on above: Performed By: #### L 3890.6202, L500.3400, L3100.0460, L3100.0300, L3890.6102, L3410.9998, L3890.6301 #### [facility] [address] [place], [address] Bilirubin [Mass/Vol] 0.53 mg/dL Normal 0.00-1.30 [facility] Comment on above: Performed By: #### L 3890.6202, L500.3400, L3100.0460, L3100.0300, L3890.6102, L3410.9998, L3890.6301 #### [facility] [address] [place], [address] Bilirubin.direct [Mass/Vol] 0.16 mg/dL Normal 0.00-0.[address] [facility] Comment on above: Performed By: #### L 3890.6202, L500.3400, L3100.0460, L3100.0300, L3890.6102, L3410.9998, L3890.6301 #### [facility] [address] [place], [address] Globulin (S) [Mass/Vol] 2.9 g/dL Normal 2.2-4.[address] [facility] Comment on above: Performed By: #### L 3890.6202, L500.3400, L3100.0460, L3100.0300, L3890.6102, L3410.9998, L3890.6301 #### [facility] [address] [place], [address] T PROT 7.3 g/dL Normal 5.9-8.[address] [facility] Comment on above: Performed By: #### L 3890.6202, L500.3400, L3100.0460, L3100.0300, L3890.6102, L3410.9998, L3890.6301 #### [facility] [address] [place], [address] Serum globulin measurementOr dered By: Lana Madrigal on 06-09-2024 Globulin (S) [Mass/Vol] 2.9 g/dL 2.2-4.[address] [facility] Serum or plasma alanine bunch otransferase (ALT) measurementOrdered By: Lana Madrigal on 06-09-2024 ALT [Catalytic activity/Vol] 34 U/L <[address] [facility] Serum or plasma albumin moises urement (mass/volume)Ordered By: Lana Madrigal on 06-09-2024 Albumin [Mass/Vol] 4.4 g/dL 3.5-5.0 [facility] Serum or plasma alkaline navid sphatase measurementOrdered By: Lana Madrigal on 06-09-2024 ALP [Catalytic activity/Vol] 92 U/L 40-[address] [facility] Total proteinOrdered By: Sanna Madrigal on 06-09-2024 Protein [Mass/Vol] 7.3 g/dL 5.9-8.4 [facility] Hepatobilliary Img w/Pharm I nton 05-27-2024 Hepatobilliary Img w/Pharm Int [facility] Services [address] [place], [place] [id number] Hepatobilliary Img w/Pharm Int MR#: [id number] Acct: [id number] Name: ROOSEVELT ELLIOTT Rep #: [id number] : 1975 M 49 From: Wan mccurdy MD PCP: AICHA Quiroz Status: REG CLI Study: Hepatobilliary Img w/Pharm Int Date of Exam: 0 05/27/24 Exam# [id number] Ordering Dr: Dave Charlton PROCEDURE: HEPATOBILLIARY IMG W/PHARM INT 05/27/2024 REASON FOR EXAM: RIGHT UPPER QUADRANT PAIN TECHNIQUE: Intravenous Choletec with planar imaging of the abdomen. RADIOPHARMACEUTICAL: 5.6 mCi of technetium labeled mebrofenin. COMPARISON: None. FINDINGS: There is good uptake of the radiopharmaceutical by the liver. Nonvisualization of the gallbladder at 2 hours. NM/Hepatobilliary Img w/Pharm Int IMPRESSION: Nonvisualization of the gallbladder up to 2 hours. Cholecystitis should be ruled out. Reading Location: [place] [address] CC: BAKERY TEAM LEADERPerla Charlton Frozen Food Selector: Signed Normal [facility] Chest WITH Contraston 2024 Chest WITH Contrast [facility] Imaging Services [address] [place] [address] [id number] Chest WITH Contrast MR#: [id number] Acct: [id number] Name: ROOSEVELT ELLIOTT Rep #: [id number] : 1975 M 49 From: Jose Kate MD PCP: AICHA Quiroz Status: REG CLI Study: Chest WITH Contrast Date of Exam: 05/26/24 Exam# [id number] Ordering Dr: Dave Charlton EXAM: CT Chest With Intravenous Contrast CLINICAL INDICATION: ATELECTASIS TECHNIQUE: Axial computed tomography images of the chest with intravenous contrast. This CT exam was performed using one or more of the following dose reduction techniques: automated exposure control, adjustment of the mA and/or kV according to patient size, and/or use of iterative reconstruction technique. COMPARISON: No relevant prior studies available. FINDINGS: ARTIFACTS: Motion artifact. LUNGS AND PLEURAL SPACES: Dependent atelectasis. Otherwise, no focal consolidation pneumothorax or pleural effusion. HEART: Cardiomegaly. No significant pericardial effusion. No significant coronary artery calcifications. BONES/JOINTS: Cortical irregularity of the left 3rd rib could be a nondisplaced fracture. This is best visualized on the sagittal view on axial image 263. No dislocation. SOFT TISSUES: Unremarkable. VASCULATURE: Unremarkable. No thoracic aortic aneurysm. LYMPH NODES: Unremarkable. No enlarged lymph nodes. LIVER: Fatty liver. CT/Chest WITH Contrast IMPRESSION: 1. Cortical irregularity of the left 3rd rib could be a nondisplaced fracture. 2. Dependent atelectasis. Otherwise, no focal consolidation pneumothorax or pleural effusion. Reading Location: [facility] CC: AICHA Charlton Frozen Food Selector: Signed Normal [facility] XR CHEST AP/PA AND LATon XR CHEST AP/PA AND LAT EXAMINATION: XR CHEST AP/PA AND LAT HISTORY: ORDERING SYSTEM PROVIDED HISTORY: Pain in right side of chest under ribs, TECHNOLOGIST PROVIDED HISTORY: Illness/Other Reason for exam: Pain in right side of chest under ribs, Pain Cancer History: n Surgery, RadiationHistory: n Encounter Type: Initial Additional signs and symptoms: none ORDERING SYSTEM PROVIDED DIAGNOSIS CODES: R52 Pain Pain in right side of chest under ribs. COMPARISON: None. TECHNIQUE: Two-view chest x-ray. FINDINGS: Cardiac size appears unchanged. Trachea is midline. No mediastinal widening. Low lung volumes are noted with bibasilar atelectasis. No pneumothorax. No pleural effusion is identified. Osseous structures appear intact. IMPRESSION: Low lung volumes with bibasilar atelectasis. [facility] Workstation ID: [id number] Dictated by: CIELO PRESLEY on ThuMay 09, 2024 4:40:20 PM EST Transcribed by: JARED JUNE on ThuMay 09, 2024 5:02:40 PM EST Finalized by: CIELO PRESLEY on ThuMay 09, 2024 7:38:49 PM EST Normal [facility] Comment on above: Order Comment: Injur y/Trauma or Illness?:Illness/Other How long have you had these symptoms (acute/chronic)?:Acute Reason for exam?:Pain in right side of chest under ribs, Pain History of cancer?:n Surgeries, chemotherapy, or radiation?:n Type of Exam?:Initial Additional signs and symptoms?:none Abdomen Limitedon 04-18-2024 Abdomen Limited [facility] Imaging Services [address] [place], [place] [id number] Abdomen Limited MR#: [id number] Acct: [id number] Name: ROOSEVELT ELLIOTT Rep #: [id number] : 1975 M 49 From: Perez Wolf PCP: AICHA Quiroz Status: DEP CLI Study: Abdomen Limited Date of Exam: 04/18/24 Exam# [id number] Ordering Dr: Dave Chalrton BAKERY TEAM LEADER-C ADDENDUM by Dr. Perez Streeter MD on 06/20/24 at 1033 Correction: Liver measured at 15.1 cm in length. Reading Location: [id number] 06/20/24 1033 Date cc: AICHA Charlton * Signed PROCEDURE: ABDOMEN LIMITED REASON FOR EXAM: Right upper quadrant pain. COMPARISON: None provided. FINDINGS: Liver: The liver is measured at 50.1 cm in length. Diffuse fatty infiltration of the liver is seen.. No focal hepatic process is noted. Hepatopetal flow is seen. Gallbladder: No stones, sludge, wall thickening or tenderness. The gallbladder is measured at 7.8 cm in length. No evidence of significant gallbladder wall thickening or pericholecystic fluid collection. No sonographic Tan's sign was elicited. Common bile duct: Obscured by overlying bowel gas. Pancreas: Mostly obscured by overlying bowel gas, but without apparent abnormality. The right kidney is measured at 11.7 x 7.4 x 7.0 cm. Right renal cortex measured at 25 mm. Visualized portions of the right kidney are unremarkable. No right upper quadrant ascites. US/Abdomen Limited IMPRESSION: 1. Diffuse fatty infiltration of the liver. No evidence of hepatomegaly. 2. Both the common bile duct of the pancreas are obscured by overlying bowel gas. 3. No evidence of acute disease. Reading Location: [address] CC: AICHA Charlton Frozen Food Selector: Signed Normal [facility] Spine Cervical (Routine)on 03-21-2023 Spine Cervical (Routine) [facility] Imaging Services [address] [place] [address] [id number] Spine Cervical (Routine) MR#: [id number] Acct: [id number] Name: ROOSEVELT ELLIOTT Rep #: [id number] : 1975 M 48 From: Cornelio Murry MD PCP: Care Physician,No Primary Status: REG CLI Study: Spine Cervical (Routine) Date of Exam: Exam# [id number] Ordering Dr: Danelle Hoffmann [id number] STUDY: MRI CERVICAL SPINE WITHOUT CONTRAST REASON FOR EXAM: Male, 48 years old. CERVICAL DISC DISORDER AT C5-C6 LEVEL WITH RADICULOPATHY LEFT TECHNIQUE: Standardized fat and water weighted pulse sequences were obtained in the sagittal and axial planes. COMPARISON: None FINDINGS: Normal foramen magnum and brainstem-cervical cord junction. Normal craniovertebral junction. Normal anterior atlantoaxial articulation. Normal odontoid process. There is straightening of the normal cervical lordosis. Normal vertebral bodies and posterior osseous elements. C2-3: Mild left facet hypertrophy produces mild left neural foraminal stenosis. No central spinal stenosis. C3-4: Mild bilateral disc osteophyte complex and right uncovertebral hypertrophy produces moderate spinal stenosis with abutment of the right hemicord and moderate right neural foraminal stenosis. C4-5: Moderate bilobed disc osteophyte complex produces moderate spinal stenosis with abutment of the central spinal cord and moderate bilateral neural foraminal stenosis. C5-6: Mild bilateral disc osteophyte complex result in mild spinal stenosis C6-7: Mild broad disc osteophyte complex results in mild spinal stenosis and mild bilateral neural foraminal stenosis. C7-T1: Normal endplates. Normal disc height, signal and morphology. Normal central canal and intervertebral neural foramina. Normal cervical cord. Normal visualized soft tissue structures. MRI/Spine Cervical (Routine) IMPRESSION: Multilevel degenerative changes, as described above. Electronically Signed: Cornelio Murry MD at 10:27 [facility] , CC: BERE Hoffmann; No Primary Care Physician Frozen Food Selector: Signed Normal [facility] CNOVon 05-09-2022 CNOV Office Visit (UCWSTR ) ROOSEVELT ELLIOTT ([id number]) 1975 M Date Time Provider Department 05/09/22 9:30 AM LINDA WALLER [facility] During your visit today, we recorded the following information about you: Temperature Pulse Respiration Blood pressure 98.2 degrees 96/minute 18/minute 148/90 Linda Waller APRN.SHEET ROCK TAPER 05/09/2022 11:28 AM Signed Subjective Came in with complaints of severe right knee pain. Patient says he cannot bear weight on it. Patient says its been escalating for the last 10 days. Patient says he was having trouble with his left leg since November and started physical therapy in April for it. Patient says the left leg is much better. Patient denies any numbness tingling burning feeling loss of feeling in the right. The history is provided by the patient. No car changer was used. Review of Systems Constitutional: Negative. Skin: Negative. Objective Physical Exam Constitutional: Appearance: Normal appearance. Pulmonary: Effort: Pulmonary effort is normal. Musculoskeletal: Legs: Comments: Patient has no swelling or deformities or discoloration noted in the right knee. Pain is not reproducible upon palpation. Patient says performing range of motion does not cause the pain just weightbearing. Neurological: Mental Status: He is alert. No past medical history on file. No past surgical history on file. ALLERGIES Patient has no known allergies. MEDICATIONS venlafaxine ER (EFFEXOR XR) 150 mg 24 hr capsule doxycycline monohydrate (MONODOX) 100 mg capsule (Patient not taking: Reported on 05/09/2022) No family history on file. Social History Tobacco Use Smoking status: Never Smokeless tobacco: Never Substance Use Topics Drug use: Never ASSESSMENT/PLAN: 1. Pain - ICD9: 780.96, ICD10: R52 - XR KNEE GENERAL 4V AP BOTH/PA BOTH/LAT/MERC RIGHT - CONSULT TO ORTHOPAEDICS * * * * Physician Interpretation * * * * PROCEDURE: Right knee INDICATION: Pain .No injury, Anterior right knee pain x several weeks. Starting yesterday the pain became so severe he is unable to put any pressure or completely straighten the knee. TECHNIQUE: XR KNEE 4V AP/PA BOTH+LAT/MONIQUE RT COMPARISON: None FINDINGS: Mild tricompartment marginal spur formation without significant joint space narrowing. No fracture, dislocation or osseous lesion. Small suprapatellar joint effusion. Mild degenerative change in the left knee, slightly greater than on the right. IMPRESSION IMPRESSION: Mild degenerative change and small joint effusion. Frozen Food Selector: IVANA Transcribe Date/Time: May 09 2022 10:49A Dictated by : CHRISTIN VICKERS MD Lidoderm pain patches prescribed. Patient was instructed to ice and elevate. Alternate Tylenol and Motrin. Patient was set up Thursday with an orthopedic follow-up for pain. Patient was okay with this care plan. Patient already has his own crutches. Linda Waller APRN.SHEET ROCK TAPER Allergies As of Date: 05/09/2022 (No Known Allergies) Date Reviewed: 05/09/2022 Reviewed by: Laura Dunn LPN - Fully Assessed Reason for Visit: Pain [78] Cmt: Pt reported (RT) knee pain rated 8, x10 days denied accident injury. Primary Visit Diagnosis:Pain [R52] Order(s):XR KNEE GENERAL 4V AP BOTH/PA BOTH/LAT/MERC RIGHT [3413836] Order #: [id number] FUTURE CONSULT TO ORTHOPAEDICS [9026] Order #: [id number]: 1 FUTURE lidocaine (LIDODERM) 5 %Apply 1 Patch as directed once daily for 14 days. Remove old patch prior to placing new patch. Location: on for 12 hours and then off for 12 hours before a new patch is palced.Disp: 14 PatchRfl: 0 Prescriptions as of 05/09/2022 - venlafaxine ER (EFFEXOR XR) 150 mg 24 hr capsule - doxycycline monohydrate (MONODOX) 100 mg capsule - lidocaine (LIDODERM) 5 % Apply 1 Patch as directed once daily for 14 days. Remove old patch prior to placing new patch. Location: on for 12 hours and then off for 12 hours before a new patch is palced. Problem List As Of Date: 05/09/2022 (None) Prescriptions ordered this encounter Disp Refills Start End LIDOCAINE 5 % TOPICAL PATCH 14 P* 0 05/09/2022 05/23/2022 Route: TRANSDERM. Sig: Apply 1 Patch as directed once daily for 14 days. Remove old patch prior to placing new patch. Location: on for 12 hours and then off for 12 hours before a new patch is palced. Encounter Status:Closed by LINDA WALLER on 05/09/[address] [facility] XR KNEE 4V AP/PA BOTH+LAT/ME R RTon 05-09-2022 XR KNEE 4V AP/PA BOTH+LAT/MONIQUE RT * * *Final Report* * * DATE OF EXAM: May 09 2022 10:34AM WOX 5203 - XR KNEE 4V AP/PA BOTH+LAT/MONIQUE RT / PROCEDURE REASON: Pain * * * * Physician Interpretation * * * * PROCEDURE: Right knee INDICATION: Pain .No injury, Anterior right knee pain x several weeks. Starting yesterday the pain became so severe he is unable to put any pressure or completely straighten the knee. TECHNIQUE: XR KNEE 4V AP/PA BOTH+LAT/MONIQUE RT COMPARISON: None FINDINGS: Mild tricompartment marginal spur formation without significant joint space narrowing. No fracture, dislocation or osseous lesion. Small suprapatellar joint effusion. Mild degenerative change in the left knee, slightly greater than on the right. IMPRESSION: Mild degenerative change and small joint effusion. Frozen Food Selector: PSCB Transcribe Date/Time: May 09 2022 10:49A Dictated by : CHRISTIN VICKERS MD This examination was interpreted and the report reviewed and electronically signed by: CHRISTIN VICKERS MD on May 09 2022 10:50AM EST [id number] Normal [facility] XR KNEE GENERAL 4V AP BOTH/P A BOTH/LAT/MERC RIGHTon 05-09-2022 [facility] XR Knee - right 4 Viewson IMPRESSION: Mild degenerative change and small joint effusion. Frozen Food Selector: IVANA Transcribe Date/Time: May 09 2022 10:49A Dictated by : CHRISTIN VICKERS MD This examination was interpreted and the report reviewed and electronically signed by: CHRISTIN VICKERS MD on May 09 2022 10:50AM [facility] DIVISION OF RADIOLOGY * * *Final Report* * * DATE OF EXAM: May 09 2022 10:34AM WOX 5203 - XR KNEE 4V AP/PA BOTH+LAT/MONIQUE RT / PROCEDURE REASON: Pain * * * * Physician Interpretation * * * * PROCEDURE: Right knee INDICATION: Pain .No injury, Anterior right knee pain x several weeks. Starting yesterday the pain became so severe he is unable to put any pressure or completely straighten the knee. TECHNIQUE: XR KNEE 4V AP/PA BOTH+LAT/MONIQUE RT COMPARISON: None FINDINGS: Mild tricompartment marginal spur formation without significant joint space narrowing. No fracture, dislocation or osseous lesion. Small suprapatellar joint effusion. Mild degenerative change in the left knee, slightly greater than on the right. DIVISION OF RADIOLOGY Provider, [facility] - 05/09/2022 * * *Final Report* * * DATE OF EXAM: May 09 2022 10:34AM WOX 5203 - XR KNEE 4V AP/PA BOTH+LAT/MONIQUE RT / PROCEDURE REASON: Pain * * * * Physician Interpretation * * * * PROCEDURE: Right knee INDICATION: Pain .No injury, Anterior right knee pain x several weeks. Starting yesterday the pain became so severe he is unable to put any pressure or completely straighten the knee. TECHNIQUE: XR KNEE 4V AP/PA BOTH+LAT/MONIQUE RT COMPARISON: None FINDINGS: Mild tricompartment marginal spur formation without significant joint space narrowing. No fracture, dislocation or osseous lesion. Small suprapatellar joint effusion. Mild degenerative change in the left knee, slightly greater than on the right. IMPRESSION IMPRESSION: Mild degenerative change and small joint effusion. Frozen Food Selector: IVANA Transcribe Date/Time: May 09 2022 10:49A Dictated by : CHRISTIN VICKERS MD This examination was interpreted and the report reviewed and electronically signed by: CHRISTIN VICKERS MD on Mar 3 2023 10:50AM [facility] Radiology Study observation (narrative) [facility] XR Knee - right 4 ViewsOrder ed By: [facility] Provider on 05-09-2022 [facility] XR Spine Lumbar w/ Obliqueso n 09-19-2016 XR Spine Lumbar w/ Obliques Exam Date/Time:09/19/2016 09:31 EDTReason for Exam:low back painReportXR SPINE LUMBAR W/ OBLIQUES, 09/19/2016 9:18 AMCLINICAL STATEMENT: Low back pain for 6 months. No known injury.COMPARISON: X-ray lumbar spine 10/01/2012.FINDINGS: Five views of the lumbar spine were obtained. Five lumbar-typevertebrae are present. The vertebral body heights and disc spaces aremaintained. There is no evidence of acute fracture or subluxation. There isdisc space narrowing at the lumbosacral junction with mild endplate sclerosis.There is suggestion of incomplete fusion of the posterior elements of thesacrum. Mild facet hypertrophy noted at L4-L5. The pedicles appear intact.Visualized portions of the bony pelvis are unremarkable. Abdominal soft tissueswithin normal limits.IMPRESSION:Mild degenerative disc disease at the lumbosacral junction without acuteabnormality of the lumbar spine. FINAL REPORT Dictated: 09/19/2016 6:38 pm Barrett Lozano MD LSigned (Electronic Signature): 09/19/2016 6:38 pmSigned by: Barrett Lozano MD Technologist: [facility] Vital Signs Date Time Vital Sign Value Performing Clinician Facility 06-09-2024 07:59-0400 Body height 185.42 cm Dave HOLCOMB Work Phone: [facility] 06-09-2024 07:59-0400 Body mass index (BMI) [Ratio] 31.6 kg/m2 Dave VALDEZC Work Phone: [facility] 06-09-2024 07:59-0400 Body weight 108.91 kg Dave HOLCOMB Work Phone: [facility] 06-09-2024 07:59-0400 Diastolic blood pressure 83 mm[Hg] Dave VALDEZC Work Phone: [facility] 06-09-2024 07:59-0400 Heart rate 87 /min Dave Zoltan BAKERY TEAM LEADER-C Work Phone: [facility] 06-09-2024 07:59-0400 Respiratory rate 18 /min Dave Charlton BAKERY TEAM LEADER-C Work Phone: [facility] 06-09-2024 07:59-0400 SaO2% (BldA) [Mass fraction] 92 % Dave Zoltan BAKERY TEAM LEADER-C Work Phone: [facility] 06-09-2024 07:59-0400 Systolic blood pressure 131 mm[Hg] Dave Zoltan BAKERY TEAM LEADER-C Work Phone: [facility] 02-22-2024 13:21-0500 Body weight 110.22 kg Tracy Tse MD Work Phone: [facility] 05-09-2022 09:41-0500 Body temperature 98.2 [degF] Linda Waller APRN.SHEET ROCK TAPER Work Phone: [facility] 05-09-2022 09:41-0500 Diastolic blood pressure 90 mm[Hg] Linda Waller APRN.SHEET ROCK TAPER Work Phone: [facility] 05-09-2022 09:41-0500 Heart rate 96 /min Linda Waller APRN.SHEET ROCK TAPER Work Phone: [facility] 05-09-2022 09:41-0500 Respiratory rate 18 /min Linda Waller APRN.SHEET ROCK TAPER Work Phone: [facility] 05-09-2022 09:41-0500 SaO2% (BldA) [Mass fraction] 97 % Linda Waller APRN.SHEET ROCK TAPER Work Phone: [facility] 05-09-2022 09:41-0500 Systolic blood pressure 148 mm[Hg] Linda Waller APRN.SHEET ROCK TAPER Work Phone: [facility] Encounters Encounter Date Encounter Type Care Provider Facility Start: 09-28-2024 ambulatory Dave Charlton Facility:[facility] Start: 06-09-2024 End: 06-09-2024 ambulatory Daveduong Benitez Zoltan BAKERY TEAM LEADER-C Work Phone: [facility] Work Phone: Start: 06-09-2024 End: 06-09-2024 Patient encounter procedure Lana Madrigal BAKERY TEAM LEADER-C -Laboratory Work Phone: Start: 06-09-2024 End: 06-09-2024 Patient encounter procedure Lana Madrigal BAKERY TEAM LEADER-C -[facility] Work Phone: Start: 06-09-2024 End: 06-09-2024 ambulatory Dave Charlton Facility[place] Start: 06-09-2024 End: 06-09-2024 ambulatory Dave Charlton Facility:[facility] Start: 05-27-2024 End: 05-27-2024 ambulatory Dave Eli Smith BAKERY TEAM LEADER-C Work Phone: [facility] Work Phone: Start: 05-27-2024 End: 05-27-2024 Patient encounter procedure Dave Zoltan BAKERY TEAM LEADER-C -Nuclear Medicine, [facility] Work Phone: Start: 05-26-2024 End: 05-27-2024 ambulatory Daveduong Benitez Zoltan BAKERY TEAM LEADER-C Work Phone: [facility] Work Phone: Start: 05-26-2024 End: 05-26-2024 Patient encounter procedure Dave Zoltan EGAN-C -Cat Scan, [facility] Work Phone: Start: 05-26-2024 End: 05-26-2024 ambulatory Dave Charlton Facility:[facility] Start: 05-09-2024 End: 05-09-2024 ambulatory PHYSICIAN [facility] Start: 04-18-2024 End: 04-18-2024 Patient encounter procedure Dave Zoltan BAKERY TEAM LEADER-C -Ultrasound, [facility] Work Phone: Start: 04-18-2024 End: 04-18-2024 ambulatory Dave Charlton Facility:[facility] Start: 04-11-2024 End: 04-11-2024 ambulatory [facility] Start: 04-04-2024 End: 04-04-2024 ambulatory [facility] Start: 03-28-2024 End: 03-28-2024 ambulatory [facility] Start: 03-21-2024 End: 03-21-2024 ambulatory [facility] Start: 03-15-2024 End: 03-15-2024 ambulatory [facility] Start: 02-22-2024 End: 02-22-2024 Office outpatient new 30 minutes Danelle Hoffmann [place] Work Phone: [facility], Neuroscience Comment on above: HNP (herniated nucle us pulposus), cervical (Primary Dx); Weakness of left upper extremity; Cervical spondylosis Start: 02-22-2024 End: 02-22-2024 ambulatory DANELLE HOFFMANN [facility] Start: 01-22-2024 End: 01-22-2024 Transcribe Orders Meredith Laureano RN [facility] Physician [facility], Neuroscience Comment on above: Cervical disc disord er (Primary Dx) Start: 01-20-2024 End: 01-20-2024 ambulatory No Primary Care Physician Facility:[facility] Start: 05-09-2022 End: 05-09-2022 ambulatory LINDA WALLER Facility:[facility] Start: 05-09-2022 End: 05-09-2022 Subsequent hospital visit by physician Xr [facility] Work Phone: Radiology Comment on above: Pain [R52] Start: 05-09-2022 End: 05-09-2022 Patient encounter procedure Linda Waller 911 OPERATOR.SHEET ROCK TAPER Work Phone: [facility] Comment on above: Pain (Primary Dx) Start: 09-19-2016 End: 09-20-2016 Ambulatory Perez Whalen Facility:[facility] Procedures Date Procedure Procedure Detail Performing Clinician Start: 05-27-2024 Radionuclide study o f abdomen Dave Charlton BAKERY TEAM LEADERSurajC Work Phone: Start: 05-26-2024 CT of thorax with contrast Dave Charlton COURTNEYC Work Phone: Start: 04-18-2024 Ultrasonography of abdomen Dave Charlton COURTNEYC Work Phone: Start: 05-09-2022 Radiologic exam knee complete 4/more views Linda Waller APRN.CNP Work Phone: Plan of Treatment Date Care Activity Detail Author Start: 04-23-2028 Urine microalbumin profile DTaP,Tdap,Td Vaccine (6 - Td or Tdap) [facility] Start: 11-08-2023 COVID-19 Vaccine () COVID-19 Vaccine () [facility] Start: 11-08-2023 Covid-19 Vaccine () Covid-19 Vaccine () [facility] Start: 11-08-2023 Influenza vaccination Influenza Vaccine (#1) [facility] Start: 03-09-2022 DEPRESSION ASSESSMENT DEPRESSION ASSESSMENT [facility] Start: 04-24-2021 COVID-19 VACCINE (4 - Booster for Moderna series) COVID-19 VACCINE (4 - Booster for Moderna series) [facility] Start: 01-28-2020 COLOGUARD (FIT-DNA) COLOGUARD (FIT-DNA) [facility] Start: 01-28-2020 Colonoscopy COLONOSCOPY [facility] Start: 01-28-2020 COLORECTAL CANCER SCREENING COLORECTAL CANCER SCREENING [facility] Start: 01-28-[address] COLONOGRAPHY [facility] Start: 01-28-2020 DIABETES SCREEN DIABETES SCREEN [facility] Start: 01-28-2020 Diabetes Screening Diabetes Screening [facility] Start: 01-28-2020 FECAL OCCULT BLOOD FECAL OCCULT BLOOD [facility] Start: 01-28-2020 Screening for malignant neoplasm of colon [facility] Start: 01-28-2020 SIGMOIDOSCOPY SIGMOIDOSCOPY [facility] Start: 2010 Lipid panel Lipid Screening [facility] Start: 2010 LIPID SCREEN LIPID SCREEN [facility] Start: 1994 Hepatitis B Vaccine (1 of - 19+ 3-dose series) Hepatitis B Vaccine (1 of 3 - 19+ 3-dose series) [facility] Start: 1994 Urine microalbumin profile DTAP,TDAP,TD (1 - Tdap) [facility] Start: 1993 Anxiety Screening Anxiety Screening [facility] Start: 1993 Depression Screening Depression Screening [facility] Start: 1993 HEPATITIS C SCREENING HEPATITIS C SCREENING [facility] Start: 1993 Hepatitis C screening Hepatitis C Screening [facility] Start: 1993 HIV SCREENING HIV SCREENING [facility] Start: 1993 HIV screening HIV Screening [facility] Start: 1990 HIV screening HIV Screening [facility] Start: 1987 Depression screening using PHQ-9 (Patient Health Questionnaire 9) score Depression Screening/Follow-Up (PHQ-2/9) [facility] [facility] History and physical examination, annual for health maintenance Wellness Visit [facility] Start: 1975 HEPATITIS B (1 of 3 - 3-dose series) HEPATITIS B (1 of 3 - 3-dose series) [facility] Start: 1975 Prostate specific antigen measurement PSA Level [facility] Start: 1975 Screening for malignant neoplasm of colon [facility] Start: 1975 Tetanus vaccination Tetanus: Every 10yrs [facility] Ultrasound elastography [facility] Immunizations Immunization Date Immunization Notes Care Provider Vilma xavier 02-07-2022 influenza virus vacc ine, unspecified formulation Xr Janet Work Phone: [facility] Payers Date Payer Category Payer Self-pay 2024 Unknown [id number] 2023 Managed Care POS (unspecified) [employer] CHOICE POS/POSII/PREMIER CARE/PREMIER CARE PLUS [id number] 2022 Private Health Insurance [id number] 2016 Unknown 2014 Unknown [id number] 1975 Unknown [id number] 2.16.840.1.941366.3.579. 2.903 1975 Unknown [id number] 2.16.840.1.558164.3.579. 2.1243 1975 Unknown [id number] 2.16.840.1.502579.3.579. 2.1243 1975 Unknown [id number] 2.16.840.1.889563.3.579. 2.1243 1975 Unknown [id number] 2.16.840.1.949543.3.579. 2.1243 1975 Unknown [id number] 2.16.840.1.507201.3.579. 2.1243 1975 Unknown [id number] 2.16.840.1.341680.3.579. 2.902 Unknown [id number] 2.16.840.1.826322.3.579. 2.462 Unknown [id number] 2.16.840.1.677060.3.579. 2.462 Unknown [id number] 2.16.840.1.810102.3.579. 2.462 Unknown [id number] 2.16.840.1.340809.3.579. 2.462 Unknown [id number] 2.16.840.1.257838.3.579. 2.462 Unknown [id number] 2.16.840.1.268857.3.579. 2.462 Unknown [id number] 2.16.840.1.735090.3.579. 2.462 Social History Date Type Detail Facility Start: 05-09-2022 End: 06-09-2024 Tobacco smoking status NHIS Never smoked tobacco [facility] Start: 05-09-2022 End: 02-29-2024 Tobacco use and exposure Smokeless tobacco non-user [facility] Start: 1975 Sex Assigned At Not on file [facility] Start: 05-09-2022 History of Social function [facility] Start: 05-09-2022 Tobacco use panel [facility] Tobacco smoking status NHIS Tobacco smoking consumption unknown [facility] Start: 06-03-2024 End: 06-14-2024 Sex Male (finding) [facility] Start: 1975 Sex Assigned At Male W [facility] Clinical Notes 05-09-2022 to 06-09-2024 Note Date & Type Note Facility 06-09-2024 Evaluation note Diagnosis Onset Date Resolution Encounter for screening colonoscopy acute June 09, 2024 7:38am Nausea acute June 09 7:38am RUQ pain acute June 09 7:38am Steatosis, liver acute June 7:38am Abdominal symptoms noneactive June 09, 2024 7:38am [facility] Work Phone: 1(326) 299-913203-21-2025 Nuclear medicine Diagnostic study note [facility] Imaging Services [address] [place] [address] [id number] Hepatobilliary Img w/Pharm Int MR#: [id number] Acct: [id number] Name: ROOSEVELT ELLIOTT Rep #: [id number] : 1975 M 49 From: Gagandeep Cabrera MD PCP: AICHA Quiroz Status: REG CLI Study:Hepatobilliary Img w/Pharm Int Date of Exam: 05/27/24 Exam# [id number] Ordering Dr: Sa chey Charlton PROCEDURE: HEPATOBILLIARY IMG W/PHARM INT 05/27/2024 REASON FOR EXAM: RIGHT UPPER QUADRANT PAIN TECHNIQUE: Intravenous Choletec with planar imaging of the abdomen. RADIOPHARMACEUTICAL: 5.6 mCi of technetium labeled mebrofenin. COMPARISON: None. FINDINGS: There is good uptake of the radiopharmaceutical by the liver. Nonvisualization of the gallbladder at 2 hours. NM/Hepatobilliary Img w/Pharm Int IMPRESSION: Nonvisualization of the gallbladder up to 2 hours. Cholecystitis should be ruled out. Reading Location: [place] [address] CC: BAKERY TEAM LEADERSurajC Dave Charlton ~ Frozen Food Selector: Signed [facility]03-20-2025 Radiology Diagnostic study note [facility] Imaging Services [address] [place], [place] [address] Chest WITH Contrast MR#: [id number] Acct: [id number] Name: ROOSEVELT ELLIOTT Rep #: [id number] : 1975 M 49 From: Terrie Kate MD PCP: AICHA Quiroz Status: REG CLI Study:Chest WITH Contrast Date of Exam: 05/26/24 Exam# [id number] Ordering Dr: Sa chey Charlton EXAM: CT Chest With Intravenous Contrast CLINICAL INDICATION: ATELECTASIS TECHNIQUE: Axial computed tomography images of the chest with intravenous contrast. This CT exam was performed using one or more of the following dose reduction techniques: automated exposure control, adjustment of the mA and/or kV according to patient size, and/or use of iterative reconstruction technique. COMPARISON: No relevant prior studies available. FINDINGS: ARTIFACTS: Motion artifact. LUNGS AND PLEURAL SPACES: Dependent atelectasis. Otherwise, no focal consolidation pneumothorax or pleural effusion. HEART: Cardiomegaly. No significant pericardial effusion. No significant coronary artery calcifications. BONES/JOINTS: Cortical irregularity of the left 3rd rib could be a nondisplacedfracture. This is best visualized on the sagittal view on axial image 263. No dislocation. SOFT TISSUES: Unremarkable. VASCULATURE: Unremarkable. No thoracic aortic aneurysm. LYMPH NODES: Unremarkable. No enlarged lymph nodes. LIVER: Fatty liver. CT/Chest WITH Contrast IMPRESSION: 1. Cortical irregularity of the left 3rd rib could be a nondisplaced fracture. 2. Dependent atelectasis. Otherwise, no focal consolidation pneumothorax or pleural effusion. Reading Location: [facility] CC: AICHA Charlton ~ Frozen Food Selector: Signed [facility]12-23-2024 Note* Addendum Note - Shauna Ugarte RN - 02/29/2024 2:09 PM ESTAddended by: SHAUNA UGARTE on: 02/29/2024 02:09 PM Modules accepted: Orders [id number] Miscellaneous Notes* Addendum Note - Shauna Ugarte RN - 02/29/2024 2:09 PM ESTAddended by: SHAUNA UGARTE on: 02/29/2024 02:09 PM Modules accepted: Orders documented in this [id number] KapilNI ROOSEVELTJOEL MAY [id number] 1975 DATE DANELLE HOFFMANN DC [address] [place] [id number] REFERRING PHYSICIAN DANELLE HOFFMANN DC ATTENDING PHYSICIAN TRACY TSE MD PRIMARY CARE PHYSICIAN PROVIDER NOT IN SYSTEM ADMITTING PHYSICIAN DANELLE HOFFMANN DC Dear Dr. Hoffmann: Thank you for sending Mr. Elliott for an evaluation of left upper extremity weakness. He denies any pain or paresthesias. He had profound weakness in the deltoid and biceps, which has improved with acupuncture. PAST MEDICAL AND SURGICAL HISTORY Noncontributory. ALLERGIES He has no known drug allergies. PHYSICAL EXAMINATION Shows left biceps weakness at 2/5, deltoid weakness at 2/5 to 3-/5, and triceps weakness in the 3+/5 to 4-/5 range. The rest of his exam is intact. IMAGING MRI scanning shows multilevel cervical disk bulging from C4-5 to C6-7. DIAGNOSES Left upper extremity postviral brachial radiculitis resolving, incidental cervical spondylosis. TREATMENT OPTIONS AND PLAN I told Mr. Elliott he does not need any surgery for his neck. This seems to be a [place]-Villeda variant. I encouraged physical therapy, and I gave him a prescription for this. He knows to call me if he develops any new symptoms. Thank you very much. Sincerely, TRACY TSE MD D 02/22/2024 13:33 [id number] T 02/22/2024 20:04 CLB/MODL cc: Dave Charlton CNP AUTHENTICATED BY TRACY TSE, ON 02/24/2024 11:06:27[facility]12-16-2024 History of Present illness Narrative* Tracy Tse MD - 02/22/2024 9:05 PM EST ROOSEVELT ELLIOTT [facility] [id number] 1975 DATE DANELLE HOFFMANN DC [address] [place] [id number] REFERRING PHYSICIAN DANELLE HOFFMANN DC ATTENDING PHYSICIAN TRACY TSE MD PRIMARY CARE PHYSICIAN PROVIDER NOT IN SYSTEM ADMITTING PHYSICIAN DANELLE HOFFMANN DC Dear Dr. Hoffmann: Thank you for sending Mr. Elliott for an evaluation of left upper extremity weakness. He denies any pain or paresthesias. He had profound weakness in the deltoid and biceps, which has improved with acupuncture. PAST MEDICAL AND SURGICAL HISTORY Noncontributory. ALLERGIES He has no known drug allergies. PHYSICAL EXAMINATION Shows left biceps weakness at 2/5, deltoid weakness at 2/5 to 3-/5, and triceps weakness in the 3+/5 to 4-/5 range. The rest of his exam is intact. IMAGING MRI scanning shows multilevel cervical disk bulging from C4-5 to C6-7. DIAGNOSES Left upper extremity postviral brachial radiculitis resolving, incidental cervical spondylosis. TREATMENT OPTIONS AND PLAN I told Mr. Elliott he does not need any surgery for his neck. This seems to be a [place]-Villeda variant. I encouraged physical therapy, and I gave him a prescription for this. He knows to call me if he develops any new symptoms. Thank you very much. Sincerely, TRACY TSE MD D 02/22/2024 13:33 [id number] T 02/22/2024 20:04 CLB/MODL cc: Dave Charlton CNP * Tracy Tse MD - 02/22/2024 1:24 PM EST See Dictation. documented in this [id number] NoteSee Dictation. AUTHENTICATED BY TRACY TSE, ON 02/22/2024 13:36:36[facility]12-16-2024 History of Present illness Narrative* Tracy Tse MD - 02/22/2024 1:24 PM EST See Dictation. documented in this [id number] NoteHNO ID: [id number] Author: RT Niya(R) Service: Radiology Author Type: Technologist Type: Progress Notes Filed: 05/09/2022 10:35 AM Note Text: Radiology Service Progress Note PATIENT NAME: Roosevelt Elliott DATE OF SERVICE: May 09, 2022 TIME: 10:21 AM PATIENT IDENTITY VERIFICATION COMPLETED USING TWO (2) IDENTIFIERS: Name and Date of confirmed by patient verbally. FALL SCREENING: Has the patient had 2 falls in the last year or 1 fall with injury or currently using an Ambulatory Assistive Device (Walker, Cane, Wheelchair, Crutches, etc.)? Yes, Patient High Risk for Falls What interventions were put in place to prevent falls during this visit? Instructed Patient to Call for Help if Needed, Offered Assistance with Transfers/Clothing, and Increased Observations by Caregivers PATIENT GENDER DATA: Male PATIENT RELEVANT IMPLANT DATA REVIEWED: Yes RADIOLOGY DEPARTMENT: General X-ray: Exam(s) Completed: Lower Extremity X-Ray(s): Knee, AP / Lat / Tunne / Merchant Right PERIPHERAL IV DATA: Not applicable SIGNED BY: RT Niya(R) May 09, 2022 10:21 [facility]03-03-2023 NoteHNO ID: [id number] Author: Linda Waller APRN.SHEET ROCK TAPER Service: ? Author Type: Nurse Practitioner Type: Progress Notes Filed: 05/09/2022 11:28 AM Note Text: Subjective Came in with complaints of severe right knee pain. Patient says he cannot bear weight on it. Patient says its been escalating for the last 10 days. Patient says he was having trouble with his left leg since November and started physical therapy in April for it. Patient says the left leg is much better. Patient denies any numbness tingling burning feeling loss of feeling in the right. The history is provided by the patient. No car changer was used. Review of Systems Constitutional: Negative. Skin: Negative. Objective Physical Exam Constitutional: Appearance: Normal appearance. Pulmonary: Effort: Pulmonary effort is normal. Musculoskeletal: Legs: Comments: Patient has no swelling or deformities or discoloration noted in the right knee. Pain is not reproducible upon palpation. Patient says performing range of motion does not cause the pain just weightbearing. Neurological: Mental Status: He is alert. No past medical history on file. No past surgical history on file. ALLERGIES Patient has no known allergies. MEDICATIONS venlafaxine ER (EFFEXOR XR) 150 mg 24 hr capsule doxycycline monohydrate (MONODOX) 100 mg capsule (Patient not taking: Reported on 05/09/2022) No family history on file. Social History Tobacco Use Smoking status: Never Smokeless tobacco: Never Substance Use Topics Drug use: Never ASSESSMENT/PLAN: 1. Pain - ICD9: 780.96, ICD10: R52 - XR KNEE GENERAL 4V AP BOTH/PA BOTH/LAT/MERC RIGHT - CONSULT TO ORTHOPAEDICS * * * * Physician Interpretation * * * * PROCEDURE: Right knee INDICATION: Pain .No injury, Anterior right knee pain x several weeks. Starting yesterday the pain became so severe he is unable to put any pressure or completely straighten the knee. TECHNIQUE: XR KNEE 4V AP/PA BOTH+LAT/MONIQUE RT COMPARISON: None FINDINGS: Mild tricompartment marginal spur formation without significant joint space narrowing. No fracture, dislocation or osseous lesion. Small suprapatellar joint effusion. Mild degenerative change in the left knee, slightly greater than on the right. IMPRESSION IMPRESSION: Mild degenerative change and small joint effusion. Frozen Food Selector: IVANA Transcribe Date/Time: May 09 2022 10:49A Dictated by : CHRISTIN VICKERS MD Lidoderm pain patches prescribed. Patient was instructed to ice and elevate. Alternate Tylenol and Motrin. Patient was set up Thursday with an orthopedic follow-up for pain. Patient was okay with this care plan. Patient already has his own crutches. Linda Waller APRN.[facility]03-03-2023 History of Present illness Narrative* Maxine Elliott RT(R) - 05/09/2022 10:10 AM EST Radiology Service Progress Note PATIENT NAME: Roosevelt Elliott DATE OF SERVICE: May 09, 2022 TIME: 10:21 AM PATIENT IDENTITY VERIFICATION COMPLETED USING TWO (2) IDENTIFIERS: Name and Date of confirmedby patient verbally. FALL SCREENING: Has the patient had 2 falls in the last year or 1 fall with injury or currently using an Ambulatory Assistive Device (Walker, Cane, Wheelchair, Crutches, etc.)? Yes, Patient High Riskfor Falls What interventions were put in place to prevent falls during this visit? Instructed Patient to Callfor Help if Needed, Offered Assistance with Transfers/Clothing, and Increased Observations by Caregivers PATIENT GENDER DATA: Male PATIENT RELEVANT IMPLANT DATA REVIEWED: Yes RADIOLOGY DEPARTMENT: General X-ray: Exam(s) Completed: Lower Extremity X- Ray(s): Knee, AP / Lat / Tunne / Merchant Right PERIPHERAL IV DATA: Not applicable SIGNED BY: RT Niya(R) May 09, 2022 10:21 AM documented in [facility] encounter[facility]-2023 History of Present illness Narrative* Linda Waller APRN.SHEET ROCK TAPER - 05/09/2022 10:00 AM EST Images from the original note were not included. Subjective Came in with complaints of severe right knee pain. Patient says he cannot bear weight on it. Patient says its been escalating for the last 10 days. Patient says he was having trouble with his left leg since November and started physical therapy in April for it. Patient says the left leg is muchbetter. Patient denies any numbness tingling burning feeling loss of feeling in the right. The history is provided by the patient. No car changer was used. Review of Systems Constitutional: Negative. Skin: Negative. Objective Physical Exam Constitutional: Appearance: Normal appearance. Pulmonary: Effort: Pulmonary effort is normal. Musculoskeletal: Legs: Comments: Patient has no swelling or deformities or discoloration noted in the right knee. Pain is not reproducible upon palpation. Patient says performing range of motion does not cause the pain just weightbearing. Neurological: Mental Status: He is alert. No past medical history on file. No past surgical history on file. ALLERGIES Patient has no known allergies. MEDICATIONS venlafaxine ER (EFFEXOR XR) 150 mg 24 hr capsule doxycycline monohydrate (MONODOX) 100 mg capsule (Patient not taking: Reported on 05/09/2022) No family history on file. Social History Tobacco Use Smoking status: Never Smokeless tobacco: Never Substance Use Topics Drug use: Never ASSESSMENT/PLAN: 1. Pain - ICD9: 780.96, ICD10: R52 - XR KNEE GENERAL 4V AP BOTH/PA BOTH/LAT/MERC RIGHT - CONSULT TO ORTHOPAEDICS * * * * Physician Interpretation * * * * PROCEDURE: Right knee INDICATION: Pain .No injury, Anterior right knee pain x several weeks. Starting yesterday the pain became so severe he is unable to put any pressure or completely straighten the knee. TECHNIQUE: XR KNEE 4V AP/PA BOTH+LAT/MONIQUE RT COMPARISON: None FINDINGS: Mild tricompartment marginal spur formation without significant joint space narrowing. No fracture, dislocation or osseous lesion. Small suprapatellar joint effusion. Mild degenerative change in the left knee, slightly greater than on the right. IMPRESSION IMPRESSION: Mild degenerative change and small joint effusion. Frozen Food Selector: IVANA Transcribe Date/Time: May 09 2022 10:49A Dictated by : CHRISTIN VICKERS MD Lidoderm pain patches prescribed. Patient was instructed to ice and elevate. Alternate Tylenol and Motrin. Patient was set up Thursday with an orthopedic follow-up for pain. Patient was okay with this care plan. Patient already has his own crutches. Linda Waller APRN.LEORA documented in this encounterMount [facility]el [facility] SystemEvaluation note* Diagnosis Pain- Primary Generalized pain documented [facility]* Diagnosis Pain Generalized pain documented in this encounter [facility] [place] [facility]* Diagnosis Cervical disc disorder- Primary documented in this encounter [facility] [place] [facility]* Diagnosis HNP (herniated nucleus pulposus), cervical- Primary Displacement of cervical intervertebral disc without myelopathy Weakness of left upper extremity Other musculoskeletal symptoms referable to limbs Cervical spondylosis Cervical spondylosis without myelopathy [facility] Diagnosis HNP (herniated nucleus pulposus), cervical- Primary Displacement of cervical intervertebral disc without myelopathy Weakness of left upper extremity Other musculoskeletal symptoms referable to limbs Cervical spondylosis Cervical spondylosis without myelopathy documented in this encounter [facility] [place] noteNo assessment information availableWSumma Health Work Phone: Reason for referral (narrative)* Diagnostic Procedure Only (Urgent) - Closed Specialty Diagnoses / Procedures Referred By Contac t Referred To Contact XR IMAGING Diagnoses Pain Procedures XR KNEE GENERAL 4V AP BOTH/PA BOTH/LAT/MERC RIGHT RADIOLOGIC EXAM KNEE COMPLETE 4/MORE VIEWS Linda Waller APRN.SHEET ROCK TAPER [address] [place] [address] [place] [address] Referral ID Status Reason Start Date Expiration Date V isits Requested Visits Authorized [id number] Closed Auto-Generate d Referral 05/09/2022 06/08/2023 1 1 [facility] for referral (narrative)No reason for referral information availableWSumma Health Work Phone: Reason for visit Narrative* Diagnostic Procedure Only (Urgent) - Closed Specialty Diagnoses / Procedures Referred By Contac t Referred To Contact XR IMAGING Diagnoses Pain Procedures XR KNEE GENERAL 4V AP BOTH/PA BOTH/LAT/MERC RIGHT RADIOLOGIC EXAM KNEE COMPLETE 4/MORE VIEWS Linda Waller APRN.CNP [address] [place] [address] [place] [address] Referral ID Status Reason Start Date Expiration Date V isits Requested Visits Authorized [id number] Closed Auto-Generate d Referral 05/09/2022 06/08/2023 1 1 [facility] Summary Purpose Family History No Family History Records Found Relationship Condition Age at Onset Recorded Date/T david Not Specified Diabetes mellitus Unknown Cardiac disease Unknown Hypertension Unknown Disorder of thyroid Unknown Advance Directives No Advanced Directives Records FoundNo Advanced Directives Records FoundNo Advanced Directives Records FoundNo Advanced Directives Records FoundNo Advanced Directives Records FoundNo Advanced Directives Records Found Reason for Referral Specialty Diagnoses / Procedures Referred By Contac t Referred To Contact Diagnoses Pain Linda Waller, BARBARA.SHEET ROCK TAPER [address] [place] [address] Referral ID Status Reason Start Date Expiration Date V isits Requested Visits Authorized [id number] Pending Review 1 1 Specialty Diagnoses / Procedures Referred By Contac t Referred To Contact Orthopedics Diagnoses Pain Procedures CONSULT TO ORTHOPAEDICS OFFICE/OUTPATIENT [facility] 60-74 MINUTES Linda Waller APRN.SHEET ROCK TAPER [address] [place] [address] Referral ID Status Reason Start Date Expiration Date Visits Requested Visits Authorized [id number] Authorized PCP Requested Referral 05/09/2022 05/09/2023 1 1 Specialty Diagnoses / Procedures Referred By Contac t Referred To Contact XR IMAGING Diagnoses Pain Procedures XR KNEE GENERAL 4V AP BOTH/PA BOTH/LAT/MERC RIGHT RADIOLOGIC EXAM KNEE COMPLETE 4/MORE VIEWS Linda Waller, 911 OPERATOR.SHEET ROCK TAPER [address] [place] [address] X[facility] Imaging Referral ID Status Reason Start Date Expiration Date V isits Requested Visits Authorized [id number] Closed Auto-Generate d Referral 05/09/2022 06/08/2023 1 1 Chief Complaint and Reason for Visit Chief Complaint Admit Date RIGHT UPPER QU PAIN April 18, 2024 6:56am Atelectasis May 26, 2024 7:3 6am RUQ PAIN May 27, 2024 11: 15am Chief Complaint Admit Date RIGHT UPPER QU PAIN April 18, 2024 6:56am Atelectasis May 26, 2024 7:3 6am RUQ PAIN May 27, 2024 11: 15am Abdominal complaints June 09, 2024 7:3 8am E ORDERS June 09, 2024 8:42 am Reason for Visit Admit Date Encounter for screening colonoscopy Apri l 2024 7:38am Nausea June 09, 2024 7:38 am RUQ pain June 09, 2024 7:38 am Steatosis, liver June 09, 2024 7:38 am Abdominal symptoms June 09, 2024 7:38 am Additional Source Comments (unrecognized sect ion and content) No Status Records FoundNo Status Records FoundNo Status Records FoundNo Status Records FoundNo Status Records FoundNo Status Records Found INFORMATION SOURCE (unrecogn ized section and content) DATE CREATED AUTHOR 09/02/2017 [facility] DATE CREATED AUTHOR AUTHOR'S ORGANIZ ATION 05/10/[address] [facility] DATE CREATED AUTHOR AUTHOR'S ORGANIZ ATION 02/24/2024 [facility] DATE CREATED AUTHOR AUTHOR'S ORGANIZ ATION 04/18/2024 [facility] DATE CREATED AUTHOR AUTHOR'S ORGANIZ ATION 05/28/2024 [facility] DATE CREATED AUTHOR AUTHOR'S ORGANIZ ATION 08/05/2024 [facility] Source Comments (unrecognize d section and content) In the event this informatio n is protected by the Federal Confidentiality of Alcohol and Drug Abuse Patient Records regulations: The Federal rules restrict any use of the information to criminally investigate or prosecute any alcohol or drug abuse patient.[facility] SystemIn the event this information is protected by the Federal Confidentiality of Alcohol and Drug Abuse Patient Records regulations: The Federal rules restrict any use of the information to criminally investigate or prosecute any alcohol or drug abuse patient.[facility] Reason for Visit (unrecogniz ed section and content) Reason Comments Pain Pt reported (RT) kami erickson pain rated 8, x10 days denied accident injury. Reason Comments Neck Pain Arm Pain Specialty Diagnoses / Procedures Referred By Brianna gongora Referred To Contact Neurosurgery Diagnoses Cervical disc disorder Danelle Hoffmann DC [address] [place] [address] Phone: tel: fax: Tracy Tse MD [address] [facility] [address] [place] [address] Phone: tel: fax: Referral ID Status Reason Start Date Expiration Date Visits Re quested Visits Authorized [id number] Closed 01/22/2024 01/21/2025 1 1 Care Teams (unrecognized sec tion and content) Spa Coordinator Relationship Specialty Start Date End Date System, Provider Not In PCP - General 01/27/24 Spa Coordinator Relationship Specialty Start Date End Date System, Provider Not In PCP - General 01/27/24 Team Status: Active Member Role Status Dates AICHA Gaytan Primary Care Provider Acti ve Team Status: Inactive Member Role Status Dates AICHA Gaytan Primary Care Provider Acti ve Start: April 18, 2024 End: April 18, 2024 AICHA Gaytan Attending Provider Active Start: April 18, 2024 End: April 18, 2024 AICHA Gaytan Referring Provider Active Start: April 18, 2024 End: April 18, 2024 Team Status: Inactive Member Role Status Dates AICHA Gaytan Primary Care Provider Acti ve Start: May 26, 2024 End: May 26, 2024 AICHA Gaytan Attending Provider Active Start: May 26, 2024 End: May 26, 2024 AICHA Gaytan Referring Provider Active Start: May 26, 2024 End: May 26, 2024 Team Status: Active Member Role Status Dates Dave Eli Charlton , BAKERY TEAM LEADER-C Primary Care Provider Acti ve Start: May 27, 2024 Dave Charlton BAKERY TEAM LEADER-C Attending Provider Active Start: May 27, 2024 Dave Charlton BAKERY TEAM LEADER-C Referring Provider Active Start: May 27, 2024 Team Status: Inactive Member Role Status Dates Dave Eli Charlton BAKERY TEAM LEADER-C Primary Care Provider Acti ve Start: May 27, 2024 End: May 27, 2024 Dave Charlton BAKERY TEAM LEADER-C Attending Provider Active Start: May 27, 2024 End: May 27, 2024 Dave Charlton BAKERY TEAM LEADER-C Referring Provider Active Start: May 27, 2024 End: May 27, 2024 Team Status: Inactive Member Role Status Dates Dave Eli Charlton NP-C Primary Care Provider Acti ve Start: June 09, 2024 End: June 09, 2024 Dave Charlton BAKERY TEAM LEADER-C Referring Provider Active Start: June 09, 2024 End: June 09, 2024 Lana Madrigal NP-C Attending Provider Active Start: June 09, 2024 End: June 09, 2024 Team Status: Inactive Member Role Status Dates Dave Eli Charlton BAKERY TEAM LEADER-C Primary Care Provider Acti ve Start: June 09, 2024 End: June 09, 2024 Lana Madrigal BAKERY TEAM LEADER-C Attending Provider Active Start: June 09, 2024 End: June 09, 2024 Lana Madrigal BAKERY TEAM LEADER-C Referring Provider Active Start: June 09, 2024 End: June 09, 2024 Goals (unrecognized section and content) Goals may be documented in a n alternate sectionGoals may be documented in an alternate sectionGoals may be documented in an alternate section FOR RECORDS PERTAINING TO PATIENTS WHO ARE OR HAVE BEEN ENROLLED IN A CHEMICAL DEPENDENCY/SUBSTANCEABUSE PROGRAM, SOME INFORMATION MAY BE OMITTED. This clinical summary was aggregated from multiple sources. Caution should be exercised in using it in the provision of clinical care. This summary normalizes information from multiple sources, and as a consequence, information in this document may materially change the coding, format and clinical context of patient data. In addition, data may be omitted in some cases. CLINICAL DECISIONS SHOULD BE BASED ON THE PRIMARY CLINICAL RECORDS. [employer] [facility]. provides no warranty or guarantee of the accuracy or completeness of information in this document.
[2024-08-16 07:14] LABS: ALB/GLOB Ratio 1.5 RATIO (0.9-2.4); AST(SGOT) 194 U/L (<=37); Alanine Aminotransfer ALT/SGPT 649 U/L (<=46); Albumin, Serum 4.3 g/dL (3.5-5.0); Alkaline Phosphatase 223 U/L (40-129); Anion Gap 11 (5-15); BUN 9 mg/dL (4-19); Bilirubin, Direct 4.67 mg/dL (0.00-0.30); Calcium,Total 9.1 mg/dL (7.6-11.0); Carbon Dioxide 27.8 mmol/L (21.0-32.0); Chloride 98 mmol/L (98-108); Creatinine, Serum 1.01 mg/dL (0.70-1.20); EST Glomerular Filtration Rate 91 (>60); Estimated Creatinine Clearance 116.16 ml/min (50-250); Globulin 2.9 g/dL (2.2-4.2); Glucose 130 mg/dL (70-99); Lipase 38 U/L (13-75); Potassium 3.7 mmol/L (3.3-5.1); Protein, Total 7.2 g/dL (5.9-8.4); Sodium Level 137 mmol/L (133-145); Total Bilirubin 6.34 mg/dL (0.00-1.30)
[2024-08-16 07:52] LABS: Bacteria 0 SEEN /hpf (None Seen); Mucous, Urine 0 SEEN /hpf (<or=2+); Red Blood Cells-Urine 0 SEEN /hpf (0-5); Squamous Epithelial Cells - UA 0 SEEN /hpf (0-5); White Blood Cells 0 SEEN /hpf (0-5)
--- NOTE | 2024-08-16 08:16 | PCM.HP.STD ---
[facility] - General General Date of Service: 08/16/24 Chief Complaint: abdominal pain HPI Narrative ROOSEVELT MCKEON, is a 49 M who presents with abdominal pain. Patient has been dealing with abdominal pain for several years but this past Thursday or , he was having just more intense abdominal pain umbilical but also extending laterally. This felt as though he was constipated. And patient has been just feeling chilled but not having fevers. He has been not having much in way of appetite and eating things such as soup to help. But nonetheless he is just felt worse. Still not had a bowel movement during this time. Patient has had a history of Hirschsprung's disease and did have part of his colon removed when he was an . But never had any issues similar to this. [facility] Medical History (Updated 08/16/24 @ 08:[address] 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 Joni Nelson DO) H/O colectomy Social History Smoking Status: Never smoker alcohol intake: current Alcohol type: beer substance use type: does not use what type of physical activity do you participate in: none ROS ROS Narrative All review of systems were negative except as mentioned above in the history of present illness and the other review of systems. Vital Signs Vital Signs Vital Signs: 08/16/24 06:11 08/16/24 07:59 Temperature 36.5 C L Temperature Source Oral Pulse Rate 65 59 L Respiratory Rate 18 16 Blood Pressure 174/111 H 154/110 H Blood Pressure Mean 132 124 Pulse Ox 97 98 Oxygen Delivery Method Room Air Room Air Weight Weight: 112.207 kg Body Mass Index (BMI) 32.6 Physical Exam Narrative - Physical Exam General: Alert, Oriented x3, Cooperative HEENT: Atraumatic, icterus Oral: Moist Mucosa, No Gingival or Mucosal Lesions/ Ulcerations Neck: Supple, No JVD, Negative Carotid Bruits Lungs: Clear to auscultation, Normal air movement Cardiovascular: Regular rate, Normal S1, Normal S2, No murmurs Abdomen: Bowel Sounds Present, Soft, mild umbilical abdominal tenderness. No rebound. Non-Distended, No Hepato-splenomegaly Extremities: No clubbing, No cyanosis, No edema, Capillary Refill Less than 3 Seconds Skin: No rashes, No breakdown. Jaundiced. Musculoskeletal: No Tenderness to Palpation of Joints or Extremities Neurological: Neuro grossly intact Psych/Mental Status: Normal Affect, Appropriate Results Lab / Micro Data Attestation: I reviewed the patient's lab results. 08/16/24 06:28 08/16/24 06:28 Labs: Laboratory Results - last 24 hr 08/16/24 06:28: WBC 6.9, RBC 5.20, Hgb 16.2, Hct 46.3, MCV 89.0, MCH 31.2, MCHC 35.0, RDW Std Deviation 44.9 H, RDW Coeff of [place] 13.7, Plt Count 209, MPV 10.7, Immature Gran % (Auto) 0.400, Neut % (Auto) 72.4 H, Lymph % (Auto) 15.7 L, Lake % (Auto) 8.6, Eos % (Auto) 2.2, Baso % (Auto) 0.7, Absolute Neuts (auto) 5.0, Absolute Lymphs (auto) 1.09, Nucleated RBC % 0, Sodium 137, Potassium 3.7, Chloride 98, Carbon Dioxide 27.8, Anion Gap 11, BUN 9, Creatinine 1.01, Estim Creat Clear Calc 116.16, Est GFR (MDRD) Non-Af 91, BUN/Creatinine Ratio 9.0 L, Glucose 130 H, Calcium 9.1, Total Bilirubin 6.34 H, Direct Bilirubin 4.67 H, AST 194 H, ALT 649 H, Alkaline Phosphatase 223 H, Total Protein 7.2, Albumin 4.3, Globulin 2.9, Albumin/Globulin Ratio 1.5, Lipase 38 Imaging Radiology Impression Abdomen/Pelvis CT 08/16/24 06:19 IMPRESSION: 4 mm obstructing stone of the most distal aspect of the common bile duct. Dilated common bile duct measuring 13.4 mm. Diffuse thickening enhancement of the wall of the common bile duct, biliary tree and the distended, diffusely thickened gallbladder suspicious for ascending cholangitis. Associated acute inflammatory pathology of the gallbladder is also considered. No evidence of perforation or abscess formation. Mildly dilated intrahepatic biliary tree. Mild bilateral basilar atelectatic pulmonary changes. [facility] Assessment & Plan Assessment/Plan (1) Choledocholithiasis: PLAN: Clinically patient does not appear to have acute cholangitis but there was comment on that on the CAT scan. Though the patient does have icterus and jaundice. Patient had some subjective symptoms and just feeling the need to wear warm close when weather was warm which is atypical for him. Will empirically treat him for possible cholangitis with Cipro and metronidazole. But GI has been contacted and plan is for an ERCP. Patient to be n.p.o. until then. I did reach out to Dr. Samano as this patient will eventually require a cholecystectomy. He said to reach out after the ERCP this to have the patient is doing and they will make a determination whether or not they would need to be involved inpatient versus outpatient. Did discuss with the patient and his that he will eventually need a cholecystectomy and will determine the timing of which that would need to be done. His was concerned about an upcoming cruise they have 2 [place] for now. I told her I am not sure how he will be feeling by then but hopefully this would be enough time with him presenting now. PLAN: Plan Depression: Continue with venlafaxine VTE prophylaxis with SCDs. Charges/Coding Visit Charges Inpatient E&M: 17493 Init Hosp L2
[2024-08-16 08:19] LABS: Color, Urine Yellow (Yellow); Glucose, Dipstick Normal (Normal); Ketone-Dipstick Negative (Negative); Leukocyte Esterase-Dipstick Negative /ul (Negative); Nitrite-Dipstick Negative (Negative); Occult Blood-Urine Negative /ul (Negative); Protein-Dipstick 15 mg/dl (Negative); Urine Clarity Clear (Clear); Urine Urobilinogen 1 mg/dl (Normal)
[2024-08-16 08:23] LABS: Urine Bilirubin Dipstick 1 mg/dL (Negative)
[2024-08-16] MEDS: Ondansetron 4 MG/2 ML Vial IV (09:11)
[2024-08-16] MEDS: morphine 8 MG/ML Syringe 6 MG IV (09:13)
[2024-08-16] MEDS: Ciprofloxacin 400 MG/200 ML BAG 200 MG IV ×2 (11:30→23:01)
[2024-08-16] MEDS: 0.9% Normal Saline (1000mL) 1,000 ML 125 ML IV (11:30)
[2024-08-16] MEDS: Lactated Ringers 1,000 ML 15 ML IV (13:15)
--- NOTE | 2024-08-16 13:17 | PRE.ANES_ITS ---
ASA Classification* ASA Classification ASA Classification: 2 Assessment & Plan Anesthesia* Anesthesia Assessment Anesthesia Assessment: Discussed sedation and/or anesthesia options, risks, benefits, and alternatives with patient/parents/legal guardian/POA. Questions invited. The patient/parents/legal guardian/POA seems to understand and agrees to proceed with anesthesia plan. Reviewed the physical assessment, medical history, allergy history and patient home medications list prior to surgery/procedure/anesthetic and documented any changes. Performed airway and anesthesia risk assessments. Anesthesia Type Anesthesia Type: General Anesthesia Focused Assessment* Temperature: 97.6 F Pulse Rate: 58 Blood Pressure: 157/101 Respiratory Rate: 16 Pulse Ox: 94 Airway Assessment Mouth opens: >3 cm Mallampati Score: II Labs Anesthesia Preop lab: CBC WBC 6.9 K/mm3 (4.4-11.0) 08/16/24 06:08/16/24 RBC 5.20 M/mm3 (4.6-6.2) 08/16/24 06:08/16/24 Hgb 16.2 g/dL (13.0-16.5) 08/16/24 06:08/16/24 Hct 46.3 % (40-54) 08/16/24 06:08/16/24 Plt Count 209 K/mm3 (150-450) 08/16/24 06:08/16/24 CHEMISTRY Potassium 3.7 mmol/L (3.3-5.1) 08/16/24 06:08/16/24 Sodium 137 mmol/L (133-145) 08/16/24 06:08/16/24 BUN 9 mg/dL (4-19) 08/16/24 06:08/16/24 Creatinine 1.01 mg/dL (0.70-1.20) 08/16/24 06:08/16/24 Glucose 130 mg/dL (70-99) H 08/16/24 06:08/16/24 COAG Pre-Assessment Diagnosis/Proposed Procedure Planned Operative Procedure(s): ERCP Anesthesia History Anesthesia History - supervisor mechanic boilermaking: Anesthesia History - supervisor mechanic boilermaking Hx Hospitalization Any Problems With Anesthesia Cholinesterase deficiency You/Your Family Experience fever (hyperthermia) with Relationship Recent Exposure to Contagious No 08/16/24 13:13 Disease Does patient have nerve stimulator Patient instructed to have device shut off --Does patient have Pacemaker or ICD? When Was Last Pacemaker Check QUESTION #4 FULL TEXT: You/Your Family Experience fever (hyperthermia) with Anesthesia Last Oral Intake Last Oral intake: Last Oral Intake NPO since Meds taken in AM with sips of water? Meds patient instructed to take am of surgery PONV PONV - supervisor mechanic boilermaking: PONV - supervisor mechanic boilermaking Female HX of Motion Sickness HX of N/V After Surgery Non-Smoker Duration of Surgery greater than 60 minutes Number of Risk Factors PONV Score Height & Weight Height & Weight: Anesthesia: Height & Weight Height 6 ft 4 in 08/16/24 13:12 Weight: 107.5 kg 08/16/24 13:12 Body Mass Index (BMI) 28.8 08/16/24 13:12 Respiratory Assessment Respiratory Assessment - supervisor mechanic boilermaking: Respiratory Tract Infection Hx - supervisor mechanic boilermaking Hx Respiratory Tract Infection STOP Sleep Apnea STOP Sleep Apnea - supervisor mechanic boilermaking: STOP Sleep Apnea - supervisor mechanic boilermaking Hx Hypertension Yes 08/16/24 09:35 Hx Sleep Apnea No 08/16/24 09:35 CPAP BIPAP Do you snore loudly (louder Yes 08/16/24 09:35 than talking or can be heard Do you often feel tired/ No 08/16/24 09:35 fatigued/ sleepy during daytime? Has anyone observed you stop Yes 08/16/24 09:35 breathing during sleep? STOP Results Positive 08/16/24 09:35 QUESTION #5 FULL TEXT : Do you snore loudly (louder than talking or can be heard through closed doors)? Tobacco Use History Tobacco Use History - supervisor mechanic boilermaking: Tobacco Use History - supervisor mechanic boilermaking Tobacco Use Smoking Status Current every day smoker 08/16/24 09:35 Hx Tobacco Use Yes 08/16/24 09:35 Years Smoking 30 08/16/24 09:35 Packs Smoked per Day Smoking Cessation Date was within the last 15 years Hx Smoking Cessation Date Hx Smoking Cessation Counseling Hematologic Medial History Hematologic Hx - supervisor mechanic boilermaking: Hematologic Medical Hx - customer development manager Hx of Blood Transfusion No 08/16/24 09:35 Hx of Transfusion in last 3 No 08/16/24 09:35 Months Date of Last Transfusion (if within last 3 months) Ever experience any problems No 08/16/24 09:35 with transfusion(s)? Specify any problems Hx of Preganancy in last 3 N/A 08/16/24 09:35 Months Nurse Filling Out Transfusion MMORRISON 08/16/24 09:35 & Questions: Date: 08/16/24 08/16/24 09:35 Time: 09:39 08/16/24 09:35 Patient unable to answer at this time (ie. confused, unrespo /Reproduction History /Reproductive History - supervisor mechanic boilermaking: /Reproductive Hx- supervisor mechanic boilermaking Hx Now Gestational Age (in weeks): EDC: Hx Hx Para Hx Section SAB Active Medications Active Medications: Current Medications Generic Name Dose Route Start Last Admin Trade Name Freq PRN Reason Stop Dose Admin Acetaminophen 650 mg 08/16/24 09:28 Acetaminophen 325 Mg Tablet PO Q6H PRN PRN Pain 1-10 Or Fever >100.7 Sodium Chloride 1,000 mls @ 125 mls/hr 08/16/24 09:28 08/16/24 13:11 IV 08/17/24 01:27 0 mls/hr .Q8H JOSEPH Infusion Ciprofloxacin 400 mg in 200 mls @ 200 mls/hr 08/16/24 10:00 08/16/24 13:11 Cipro IV Infused Q12 JOSEPH Infusion Metronidazole 500 mg in 100 mls @ 100 mls/hr 08/16/24 14:00 Flagyl IV Q8 JOSEPH Sodium Chloride 250 mls @ 15 mls/hr 08/16/24 09:36 IV .[id number] PRN Saline Flush Sodium Chloride 250 mls @ 15 mls/hr 08/16/24 09:36 IV .[id number] PRN Additional IVPB Infusion Lactated Ringer's 1,000 mls @ 15 mls/hr 08/16/24 13:15 08/16/24 13:15 IV 15 mls/hr .Q48H JOSEPH Administration Morphine Sulfate 2 - 4 mg 08/16/24 09:28 Morphine 2 Mg/Ml Syringe IV Q3H PRN PRN Pain Score 6-10 Ondansetron HCl 4 mg 08/16/24 09:28 Ondansetron 4 Mg/2 Ml Vial IV Q8H PRN PRN NAUSEA/VOMITING Oxycodone HCl 5 mg 08/16/24 09:28 Oxycodone 5 Mg Tablet PO Q4H PRN PRN Pain Score 4-10 Prednisolone Acetate 1 drp 08/17/24 10:00 Prednisolone Eye Drops (5 Ml) 1 Drop Opth.Btl LEFT EYE DAILY JOSEPH Prochlorperazine Edisylate 5 mg 08/16/24 09:28 Prochlorperazine 10 Mg/2 Ml Vial IV Q4H PRN PRN Breakthrough nausea/vomiting Sodium Chloride 10 - 40 ml 08/16/24 09:36 0.9% Saline Lock 10 Ml Syringe IV UD PRN SALINE FLUSH Venlafaxine HCl 150 mg 08/16/24 10:00 08/16/24 11:30 Venlafaxine Xr 150 Mg Capsule PO Not Given DAILY JOSEPH PFSH Medical History History of Hirschsprung's disease 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 Bone fracture Cataracts, bilateral Anxiety Depression Home Medications ?Medication ?Instructions ?Recorded ?Last Taken ?Type venlafaxine 150 mg 150 mg PO DAILY 06/09/24 Unk nown History capsule,extended release 24 hr prednisolone acetate 1 % eye 1 drp LEFT EYE DAILY shantel nary 08/16/24 Unknown History drops,suspension transplant Allergy/AdvReac Type Severity Reaction Status Date / Time No Known Allergies Allergy Verified 08/16/24 06:11 Family History Other Diabetes Heart disease Hypertension Thyroid disorder Surgical History H/O colectomy Social History Smoking Status: Current every day smoker tobacco type: smokeless tobacco alcohol intake: current Alcohol type: beer substance use type: does not use what type of physical activity do you participate in: none Review of Systems (Anesthesia) ROS Narrative System reviewed and no additional complaints, except as documented.
--- NOTE | 2024-08-16 13:57 | PCM.PN.BLA ---
Progress Note 49-year-old male with past medical history of anxiety, depression, Hirschsprung's disease who presented to the emergency department with chief complaint of constipation. Patient states he has been having some worsening abdominal pain and it was associated with weight loss and fatigue. In the ED he was afebrile but he was noted to be jaundiced. His biochemical analysis was specific for cholestatic hepatitis with jaundice. He had imaging which had shown obstructive disease at the level of the hepatobiliary tree. Physical Exam Const alert, oriented x3, no apparent distress and healthy appearing General Appearance: cooperative GI normal to inspection, nondistended, normoactive bowel sounds, soft to palpation, non-tender and non-distended Percussion: normal to percussion Rectal Exam: deferred Assessment & Plan Assessment/Plan (1) Choledocholithiasis: PLAN: 49-year-old gentleman who arrives with abdominal pain and constipation and was discovered to have obstructive jaundice secondary to choledocholithiasis. He will undergo ERCP. He was explained alternatives, risk and benefits include not withstanding bleeding, infection, sepsis, perforation, need for emergency . He will have an ASA of 3. Visit Charges Inpatient E&M: 36369 Subs Hosp L3
--- NOTE | 2024-08-16 14:00 | FLU_PTH ---
PATIENT: ROOSEVELT MCKEON LOC: MS3 U#:[id number] AGE/SX: 49/M ROOM: [facility] RE08/16/[address]: Dr. Joni Nelson DO : 1975 BED: 1 DIS: 08/17/2024 SPEC #: [id number] RECD: 08/16/24 15:19 STATUS: [place]AD[place] REQ #: [id number] YOLY: 08/16/24 14:[address]: Ehsan Wallace DEPT: CYTOLOGY RECD BY: Raul Hatch ENTERED: 08/17/24 09:31 SP TYPE: Fluid OTHR DR: DO Dr. Brown Lawson MD Dr. Steven A Wanek, MD Sarah Smith, CLIENT INSIGHTS CONSULTANT-C Tissues: A - Biliary tract, NOS Procedures: Special Stain Group II Surgery Specimen Level IV Cytospin Fluid HEADER OPERATION: ERCP with brushings, stent placement and sphinctrotomy PRE-OP DIAGNOSIS: Choledocholithiasis TISSUE SUBMITTED: A- Biliary stricture brushings and brush tip for cytology DIAGNOSIS CYTOLOGY A. Biliary stricture, brushings and brush tip (cytospin x1, smear x4, cell block x1), ERCP: * Few atypical cells, favor reactive. CYTOLOGY STUDY Slides are reviewed. CYTOLOGY GROSS A. Received is 1 brush with 0.3 ml of [id number] fluid with 4 smears labeled with the patient's name and and designated per the requisition as Biliary stricture brushings and brush tip. Submitted for cytology and cell block preparation. 08/17/2024 CPT: 62890,30587
--- NOTE | 2024-08-16 14:20 | RAD_ITS ---
PROCEDURE: ERCP BILIARY/PANCREAS 08/16/2024 REASON FOR EXAM: ERCP TECHNIQUE: Fluoroscopic services provided for ERCP. The batch and furnace operator performed the ERCP. 55 seconds of fluoroscopy. 22.27 mGy. COMPARISON: None FINDINGS: Mild dilatation of the common bile duct. A biliary stent was placed. RAD/ERCP Biliary/Pancreas IMPRESSION: ERCP for biliary stent placement. Reading Location: [facility]
--- NOTE | 2024-08-16 15:10 | OP.CCLET_ITS ---
08/16/2024 Reva Quiroz Re : ERCP procedure for Aiden Jack Zoltan This procedure was performed on Friday, August 16, 2024. My impressions and recommendations are as follows: Impressions : - A single localized biliary stricture was found in the common hepatic duct. The stricture was inflammatory. - The entire biliary tree was dilated, with a stone causing an obstruction. - The biliary system were dilated, acquired. - Choledocholithiasis with a partial obstruction was found. Complete removal was accomplished by biliary sphincterotomy and balloon extraction. - A biliary sphincterotomy was performed. - The biliary tree was swept. - A biliary sphincterotomy was performed. - Cells for cytology obtained in the upper third of the main bile duct. - One temporary stent was placed into the common bile duct. Recommendations : My findings are described in the full procedure note, which is enclosed. If I can be of further assistance, please feel free to contact me at . Sincerely, Ehsan Wallace DO 08/16/2024 3:10:12 PM This report has been signed electronically.
--- NOTE | 2024-08-16 15:10 | OP.ERCP_ITS ---
Patient Name: Aiden Elliott Procedure Date: 08/16/2024 1:28 PM Date of : 1975 Age: 49 Procedure: ERCP Indications: Bile duct stone(s) Providers: Ehsan Wallace DO Medicines: General Anesthesia Patient Profile: This is a 49 year old male. Refer to note in patient chart for documentation of history and physical. Patient has symptoms of acute abdominal cramping, acute right upper quadrant abdominal pain and acute jaundice. Complications: No immediate complications. Procedure: Pre-Anesthesia Assessment: - Prior to the procedure, a History and Physical was performed, and patient medications and allergies were reviewed. The patient is competent. The risks and benefits of the procedure and the sedation options and risks were discussed with the patient. All questions were answered and informed consent was obtained. Patient identification and proposed procedure were verified by the physician in the pre-procedure area. Mental Status Examination: alert and oriented. Airway Examination: normal oropharyngeal airway and neck mobility. Respiratory Examination: clear to auscultation. CV Examination: normal. Prophylactic Antibiotics: The patient does not require prophylactic antibiotics. Prior Anticoagulants: The patient has taken no anticoagulant or antiplatelet agents except for NSAID medication. ASA Grade Assessment: II - A patient with mild systemic disease. After reviewing the risks and benefits, the patient was deemed in satisfactory condition to undergo the procedure. The anesthesia plan was to use general anesthesia. Immediately prior to administration of medications, the patient was re-assessed for adequacy to receive sedatives. The heart rate, respiratory rate, oxygen saturations, blood pressure, adequacy of pulmonary ventilation, and response to care were monitored throughout the procedure. The physical status of the patient was re-assessed after the procedure. After obtaining informed consent, the scope was passed under direct vision. Throughout the procedure, the patient's blood pressure, pulse, and oxygen saturations were monitored continuously. The Duodenoscope was introduced through the mouth, and advanced to the duodenum and used to inject contrast into the bile duct. The ERCP was accomplished without difficulty. The patient tolerated the procedure well. Scope In: 2:28:03 PM Scope Out: 2:56:12 PM Total Procedure Duration Time 0 hours 28 minutes 9 seconds Findings: The manager internet retails sales film was normal. The esophagus was successfully intubated under direct vision. The scope was advanced to a normal major papilla in the descending duodenum without detailed examination of the pharynx, larynx and associated structures, and upper GI tract. The upper GI tract was grossly normal. The bile duct was deeply cannulated with the short-nosed traction sphincterotome. Contrast was injected. I personally interpreted the bile duct images. Ductal flow of contrast was adequate. Image quality was adequate. Contrast extended to the entire biliary tree. The lower third of the main bile duct and cystic duct were partially obstructed by what appeared to be a stone. Opacification of the entire opacified area and entire biliary tree was successful. The maximum diameter of the ducts was 7 mm. The lower third of the main bile duct contained two stones, the largest of which was 6 mm in diameter. The entire opacified area and entire biliary tree were locally dilated, with a stone causing an obstruction. The largest diameter was 12 mm. A long 0.025 inch Jagwire was passed into the biliary tree. A 5 mm biliary sphincterotomy was made with a traction (standard) sphincterotome using ERBE electrocautery. There was no post-sphincterotomy bleeding. The biliary tree was swept with a 12 mm balloon starting at the upper third of the main bile duct, middle third of the main bile duct, lower third of the main duct, bifurcation, left main hepatic duct and right main hepatic duct. Sludge was swept from the duct. All stones were removed. The bile duct was deeply cannulated with the short-nosed traction sphincterotome. Contrast was injected. The common hepatic duct contained a single localized stenosis 6 mm in length. The entire opacified area was diffusely dilated, acquired. The largest diameter was 12 mm. A long 0.035 inch Soft Jagwire was passed into the biliary tree. A 5 mm biliary sphincterotomy was made with a traction (standard) sphincterotome using ERBE electrocautery. There was no post-sphincterotomy bleeding. Cells for cytology were obtained by brushing in the upper third of the main bile duct. One 10 Fr by 7 cm temporary stent was placed 5 cm into the common bile duct. Bile flowed through the stent. The stent was in good position. Impression: - A single localized biliary stricture was found in the common hepatic duct. The stricture was inflammatory. - The entire biliary tree was dilated, with a stone causing an obstruction. - The biliary system were dilated, acquired. - Choledocholithiasis with a partial obstruction was found. Complete removal was accomplished by biliary sphincterotomy and balloon extraction. - A biliary sphincterotomy was performed. - The biliary tree was swept. - A biliary sphincterotomy was performed. - Cells for cytology obtained in the upper third of the main bile duct. - One temporary stent was placed into the common bile duct. Procedure Code(s): --- Professional --- 35958, Endoscopic retrograde cholangiopancreatography (ERCP); with placement of endoscopic stent into biliary or pancreatic duct, including pre- and post-dilation and guide wire passage, when performed, including sphincterotomy, when performed, each stent 32609, Endoscopic retrograde cholangiopancreatography (ERCP); with removal of calculi/debris from biliary/pancreatic duct(s) 96618, 26, Endoscopic catheterization of the biliary ductal system, radiological supervision and interpretation CPT copyright 2021 [employer]. All rights reserved. The codes documented in this report are preliminary and upon admission discharge rn review may be revised to meet current compliance requirements. Ehsan Wallace DO 08/16/2024 3:10:12 PM This report has been signed electronically. Number of Addenda: 0 Note Initiated On: 08/16/2024 1:28 PM
--- NOTE | 2024-08-16 15:17 | PCM.POST.ANE ---
Anesthesia: Postop Eval I Current Vital Signs Temperature: 36.4 F Pulse Rate: 77 Blood Pressure: 101/63 Respiratory Rate: 18 Pulse Ox: 95 Oxygen Delivery Method: Room Air Assessment Airway patent: Yes Spontaneous unlabored respirations: Yes Mental status: Asleep nausea: No Vomiting: No Anesthesia Complication: No Fluid Hydration Crystalloid volume administer (ml): 800 Total IV fluid infused: 800 Progress Note Anesthesia document: Postop Eval 1 completed: Yes
[2024-08-16] MEDS: metroNIDAZOLE 500 MG/100 ML BAG 100 MG IV ×2 (16:11→21:17)
--- NOTE | 2024-08-16 16:13 | POSTOPAN2_ITS ---
Anesthesia Postop Eval I Sum Postop Eval Completion status Anesthesia document: Postop Eval 1 completed: Yes Anesthesia Postop Eval I Summary Anesthesia Postop Eval I Summary: Anesthesia Postop Eval I: Assessment Summary Airway patent Yes 08/16/24 15:19 [email or web address] [email or web address] Spontaneous unlabored Yes 08/16/24 15:19 [email or web address] [email or web address] respirations Mental status Asleep 08/16/24 15:19 [email or web address] nausea No 08/16/24 15:19 [email or web address] [email or web address] Vomiting No 08/16/24 15:19 [email or web address] [email or web address] Anesthesia Postop Eval I: Fluid Summary Crystalloid volume administer 800 08/16/24 15:19 [email or web address] (ml) Colloids volume administered ( ml) Blood Product volume administered (ml) Total IV fluid infused 800 08/16/24 15:19 [email or web address] [email or web address].[email or web address] Anesthesia Postop Eval I: Summary Notes Anesthesia Complication No 08/16/24 15:19 [email or web address] [email or web address] Anesthesia Complication Comment: Post-operative progress note Anesthesia: Postop Eval II Evaluation Mental status: Awake Pain Level: 0 nausea: No Vomiting: No
--- NOTE | 2024-08-16 16:13 | PCM.POSTANE2 ---
Anesthesia Postop Eval I Sum Postop Eval Completion status Anesthesia document: Postop Eval 1 completed: Yes Anesthesia Postop Eval I Summary Anesthesia Postop Eval I Summary: Anesthesia Postop Eval I: Assessment Summary Airway patent Yes 08/16/24 15:19 GROUP [email or web address] [email or web address] Spontaneous unlabored Yes 08/16/24 15:19 GROUP ACCOUNT [email or web address] respirations Mental status Asleep 08/16/24 15:19 GROUP [email or web address] [email or web address] nausea No 08/16/24 15:19 GROUP ACCOUNT [email or web address] Vomiting No 08/16/24 15:19 GROUP ACCOUNT [email or web address] Anesthesia Postop Eval I: Fluid Summary Crystalloid volume administer 800 08/16/24 15:19 GROUP ACCOUNT [email or web address].[email or web address] (ml) Colloids volume administered ( ml) Blood Product volume administered (ml) Total IV fluid infused 800 08/16/24 15:19 GROUP ACCOUNT [email or web address] Anesthesia Postop Eval I: Summary Notes Anesthesia Complication No 08/16/24 15:19 GROUP ACCOUNT DIRECTOR.[email or web address] Anesthesia Complication Comment: Post-operative progress note Anesthesia: Postop Eval II Evaluation Mental status: Awake Pain Level: 0 nausea: No Vomiting: No
[2024-08-16] MEDS: Acetaminophen 325 MG Tablet 650 MG PO (17:36)
[2024-08-16] MEDS: oxyCODONE 5 MG Tablet PO (19:02)
[2024-08-16] MEDS: proCHLORPERazine 10 MG/2 ML Vial 5 MG IV (20:52)
[2024-08-17] MEDS: 0.9% Normal Saline (1000mL) 1,000 ML 125 ML IV (02:47)
[2024-08-17 05:08] VITALS: BP 134/81; PULSE 60; RESP 16; TEMP 36.6; O2SAT 97
[2024-08-17] MEDS: metroNIDAZOLE 500 MG/100 ML BAG 100 MG IV ×2 (05:21→13:31)
--- NOTE | 2024-08-17 06:00 | EKG12_ITS ---
Test Reason : sob Blood Pressure : */* mmHG Vent. Rate : 59 BPM Atrial Rate : 59 BPM P-R Int : 164 ms QRS Dur : 112 ms QT Int : 434 ms P-R-T Axes : 55 -23 45 degrees QTcB Int : 429 ms Sinus bradycardia Otherwise normal ECG No previous ECGs available Confirmed by Brown Garcia ([id number]), editor newspaper CHRISTY HACKETT ([id number]) on 08/17/2024 10:41:49 AM Referred By: Leslie Confirmed By: Brown Garcia
[2024-08-17 06:03] LABS: Absolute Lymphocyte Count 1.32 X10^3/uL (0.83-4.51); Absolute Neutrophil Count 4.1 X10^3/uL (2.0-7.7); Basophil# 0.06 X10^3/uL; Basophil% 0.9 % (0-1); Eosinophil# 0.33 X10^3/uL; Eosinophils% 5.1 % (0-5); Hematocrit 42.1 % (40-54); Hemoglobin 14.9 g/dL (13.0-16.5); Lymphocyte # 1.32 X10^3/ul (0.83-4.51); Lymphocyte % 20.5 % (19-41); Mean Corp Hgb Conc 35.4 g/dL (32-36); Mean Corpuscular Hgb 31.9 pg (27.0-32.0); Mean Corpuscular Volume 90.1 fL (80-94); Mean Platelet Vol. 11.4 fl (6.2-12.0); Monocyte# 0.61 X10^3/uL; Monocyte% 9.5 % (0-10); NRBC Flagged by Analyzer 0 % (0-5); Neutrophil # 4.08 X10^3/uL (2.7-7.7); Neutrophil % 63.5 % (47-70); Platelet Count 200 K/mm3 (150-450); RBC Distribution Width CV 13.8 % (11.6-14.6); RBC Distribution Width SD 45.9 fl (35.1-43.9); Red Blood Count 4.67 M/mm3 (4.6-6.2); White Blood Count 6.4 K/mm3 (4.4-11.0)
[2024-08-17 06:42] LABS: ALB/GLOB Ratio 1.5 RATIO (0.9-2.4); AST(SGOT) 118 U/L (<=37); Alanine Aminotransfer ALT/SGPT 470 U/L (<=46); Albumin, Serum 3.6 g/dL (3.5-5.0); Alkaline Phosphatase 197 U/L (40-129); Anion Gap 11 (5-15); BUN 11 mg/dL (4-19); BUN/Creat Ratio 12.5 RATIO (10-20); Calcium,Total 8.8 mg/dL (7.6-11.0); Chloride 103 mmol/L (98-108); Creatinine, Serum 0.85 mg/dL (0.70-1.20); EST Glomerular Filtration Rate 107 (>60); Estimated Creatinine Clearance 141.38 ml/min (50-250); Globulin 2.5 g/dL (2.2-4.2); Glucose 91 mg/dL (70-99); Potassium 3.7 mmol/L (3.3-5.1); Protein, Total 6.1 g/dL (5.9-8.4); Sodium Level 137 mmol/L (133-145); Total Bilirubin 3.03 mg/dL (0.00-1.30)
--- NOTE | 2024-08-17 07:52 | PCM.PN.HOSP ---
Reason for Visit Reason for Visit: Diagnoses Calculus of bile duct without cholangitis or cholecystitis without obstruction (08/16/24) Subjective Subjective Feeling much better. Tolerating diet. Objective Data Objective Data Vital Signs: Vital Signs Temp Pulse Resp BP Pulse Ox O2 Del Method 36.6 C 60 16 134/81 H 97 Room Air 08/17/24 05:08 08/17/24 05:08 08/17/24 05:08 08/17/24 05:08 08/17/24 05:08 08/17/24 05:08 Oxygen Delivery Method Room Air Weight: 107.5 kg Body Mass Index (BMI) 28.8 Intake & Output: Intake and Output for Last 24 Hours 08/15/24 08/16/24 08/17/24 23:59 23:59 23:59 Intake Total 2644.00 / 2944.00 600 / 600 Balance 2644.00 / 2944.00 600 / 600 Lab / Micro Data 08/17/24 04:59 08/17/24 04:59 Labs: Laboratory Results - last 24 hr 08/16/24 07:43: Urine Color Yellow, Urine Clarity Clear, Urine pH 7.0, Ur Specific [place] 1.010, Urine Protein 15 H, Urine Glucose (UA) Normal, Urine Ketones Negative, Urine Occult Blood Negative, Urine Nitrite Negative, Urine Bilirubin 1 H, Urine Urobilinogen 1 H, Ur Leukocyte Esterase Negative, Urine RBC 0 SEEN, Urine WBC 0 SEEN, Ur Squamous Epith Cells 0 SEEN, Urine Bacteria 0 SEEN, Urine Mucus 0 SEEN 08/17/24 04:59: WBC 6.4, RBC 4.67, Hgb 14.9, Hct 42.1, MCV 90.1, MCH 31.9, MCHC 35.4, RDW Std Deviation 45.9 H, RDW Coeff of [place] 13.8, Plt Count 200, MPV 11.4, Immature Gran % (Auto) 0.500, Neut % (Auto) 63.5, Lymph % (Auto) 20.5, [place] % (Auto) 9.5, Eos % (Auto) 5.1 H, Baso % (Auto) 0.9, Absolute Neuts (auto) 4.1, Absolute Lymphs (auto) 1.32, Nucleated RBC % 0, Sodium 137, Potassium 3.7, Chloride 103, Carbon Dioxide 23.0, Anion Gap 11, BUN 11, Creatinine 0.85, Estim Creat Clear Calc 141.38, Est GFR (MDRD) Non-Af 107, BUN/Creatinine Ratio 12.5, Glucose 91, Calcium 8.8, Total Bilirubin 3.03 H, AST 118 H, ALT 470 H, Alkaline Phosphatase 197 H, Total Protein 6.1, Albumin 3.6, Globulin 2.5, Albumin/Globulin Ratio 1.5, TSH 1.580 Radiography Diagnostic Testing: Radiology Impression Endo Retro Cholangiopancreatogram 08/16/24 14:20 IMPRESSION: ERCP for biliary stent placement. Reading Location: [place] [id number] Physical Exam Const alert and no apparent distress HEENT head/scalp atraumatic and moist oral mucous membranes Resp normal respiratory effort, no retractions, no use of accessory muscles and clear to auscultation bilaterally Cardio regular rate, regular rhythm, S1 normal heart sound and S2 normal heart sound GI normal to inspection, nondistended, normoactive bowel sounds, soft to palpation, non-tender and non-distended Extremity normal to inspection Neuro Sensorium / Orientation: awake and alert Assessment & Plan Assessment/Plan (1) Choledocholithiasis: PLAN: Clinically patient does not appear to have acute cholangitis but there was comment on that on the CAT scan. Though the patient does have icterus and jaundice. Patient had some subjective symptoms and just feeling the need to wear warm close when weather was warm which is atypical for him. Will empirically treat him for possible cholangitis with Cipro and metronidazole. But GI has been contacted and plan is for an ERCP. Patient to be n.p.o. until then. I did reach out to Dr. Samano as this patient will eventually require a cholecystectomy. He said to reach out after the ERCP this to have the patient is doing and they will make a determination whether or not they would need to be involved inpatient versus outpatient. Did discuss with the patient and his that he will eventually need a cholecystectomy and will determine the timing of which that would need to be done. His was concerned about an upcoming cruise they have 2 through Saturdays for now. I told her I am not sure how he will be feeling by then but hopefully this would be enough time with him presenting now. ERCP performed on 05/16 showed a single localized biliary stricture in the common hepatic duct and was inflammatory. Choledocholithiasis w partial obstruction was found. Complete removal was accomplished by biliary sphincterotomy and balloon extraction. Stent placed. Patient to follow up with general surgery in 3 weeks. PLAN: Plan Depression: Continue with venlafaxine VTE prophylaxis with SCDs. I discussed with the patient and his . I recommended he stay one day to follow up labs, and ensure he continues to improve. Though I did say if he goes home, he would go home with abx. I left it up to him. In the meantime he will stay here. Charges/Coding Visit Charges Inpatient E&M: 33886 Subs Hosp L2
--- NOTE | 2024-08-17 08:00 | EX.PCM.CON.S ---
Assessment & Plan Assessment/Plan (1) Choledocholithiasis: PLAN: Plan The patient is a 49-year-old male who presented with abdominal pain and ascending cholangitis. Patient is status post ERCP performed yesterday. His bilirubin and LFTs are downtrending but still elevated. Review of his CT scan on admission showed considerable inflammation around the entire biliary tree including the gallbladder. This degree of inflammation would certainly increase the possibility of bile duct injury should a cholecystectomy be performed at this time in relation to the cholangitis. Since the patient is essentially asymptomatic at this point, I would recommend no plans for cholecystectomy during this admission. Instead, I would recommend having him follow-up with me as an outpatient in about 3 weeks for reevaluation. His most recent right upper quadrant ultrasound did not show gallstones within the gallbladder. Certainly is possible that his stones may have already been in the common bile duct at that time. Patient is agreeable to this plan. HPI Consult Data Date of Consult: 08/17/24 HPI Narrative Reason for Consultation: Choledocholithiasis HPI Narrative: ROOSEVELT MCKEON, is a 49 M who presented to the emergency department with abdominal pain. He states that he had been having abdominal pain off and on for several years however this pain intensified over this week. He presented to the emergency room. He was found to have an elevated bilirubin and imaging showed dilated and thickened common bile duct and biliary tree consistent with cholangitis. Patient underwent ERCP yesterday with stone extraction. General surgery consult was obtained as gallbladder was also shown to be somewhat thickened on imaging as well (likely secondary to cholangitis). His most recent right upper quadrant ultrasound did not show any obvious stones. This morning patient states he is doing well and has really minimal if any abdominal pain. 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 Bone fracture Cataracts, bilateral Anxiety Depression Home Medications ?Medication ?Instructions ?Recorded ?Last Taken ?Type venlafaxine 150 mg 150 mg PO DAILY 06/09/24 Unknown History capsule,extended release 24 hr prednisolone acetate 1 % eye 1 drp LEFT EYE DAILY coronary 08/16/24 Unknown History drops,suspension transplant Allergy/AdvReac Type Severity Reaction Status Date / Time No Known Allergies Allergy Verified 08/16/24 06:11 Family History Other Diabetes Heart disease Hypertension Thyroid disorder Surgical History H/O colectomy Social History Smoking Status: Current every day smoker tobacco type: smokeless tobacco alcohol intake: current Alcohol type: beer substance use type: does not use what type of physical activity do you participate in: none Physical Exam Narrative He is alert and oriented x 3. He is in no acute distress. Pupils equal round and reactive to light. Extraocular muscles are intact. Abdomen is soft, nontender and nondistended. No significant tenderness in the right upper quadrant currently Medical Records Data Attestation: I reviewed the patient's medical records Lab / Micro Data Attestation: I reviewed the patient's lab results. 08/17/24 04:59 08/17/24 04:59 Labs: Laboratory Results - last 24 hr 08/16/24 07:43: Urine Color Yellow, Urine Clarity Clear, Urine pH 7.0, Ur Specific [place] 1.010, Urine Protein 15 H, Urine Glucose (UA) Normal, Urine Ketones Negative, Urine Occult Blood Negative, Urine Nitrite Negative, Urine Bilirubin 1 H, Urine Urobilinogen 1 H, Ur Leukocyte Esterase Negative, Urine RBC 0 SEEN, Urine WBC 0 SEEN, Ur Squamous Epith Cells 0 SEEN, Urine Bacteria 0 SEEN, Urine Mucus 0 SEEN 08/17/24 04:59: WBC 6.4, RBC 4.67, Hgb 14.9, Hct 42.1, MCV 90.1, MCH 31.9, MCHC 35.4, RDW Std Deviation 45.9 H, RDW Coeff of [place] 13.8, Plt Count 200, MPV 11.4, Immature Gran % (Auto) 0.500, Neut % (Auto) 63.5, Lymph % (Auto) 20.5, [place] % (Auto) 9.5, Eos % (Auto) 5.1 H, Baso % (Auto) 0.9, Absolute Neuts (auto) 4.1, Absolute Lymphs (auto) 1.32, Nucleated RBC % 0, Sodium 137, Potassium 3.7, Chloride 103, Carbon Dioxide 23.0, Anion Gap 11, BUN 11, Creatinine 0.85, Estim Creat Clear Calc 141.38, Est GFR (MDRD) Non-Af 107, BUN/Creatinine Ratio 12.5, Glucose 91, Calcium 8.8, Total Bilirubin 3.03 H, AST 118 H, ALT 470 H, Alkaline Phosphatase 197 H, Total Protein 6.1, Albumin 3.6, Globulin 2.5, Albumin/Globulin Ratio 1.5, TSH 1.580 Imaging Radiology Impression Endo Retro Cholangiopancreatogram 08/16/24 14:20 IMPRESSION: ERCP for biliary stent placement. Reading Location: [facility] Charges/Coding Visit Charges Inpatient E&M: 32513 Init Hosp L3
[2024-08-17] MEDS: Venlafaxine XR 150 MG Capsule PO (08:37)
[2024-08-17 08:46] VITALS: BP 115/78; PULSE 62; RESP 14; TEMP 36.5; O2SAT 94
--- NOTE | 2024-08-17 09:15 | CASEMGMT ---
FRANCE GALINDO Assessment: Face to Face with pt for initial transition planning/care coordination assessment. FRANCE GALINDO introduced self and role at [facility], pt voices understanding and consents to assessment. Pt is A&O x4 and answers all questions appropriately at this time. Pt at bedside. Care providers, pharmacy, and demographics verified/updated. Admitting Dx: choledocholithiasis Strata Score: 1 PCP:Zoltan Specialists: Friend, GI Preferred Pharmacy: [facility] Insurance: [employer] Prescription Benefit: yes LNOK: Janina Elliott, ; Mali Savage, sister Living Arrangements: Pt lives with and dtr in a single story home with 2 steps to enter. Pt reports he is I in ADL/IADLs and denies concerns at home. Transportation: Pt drives self and denies concerns with transportation. DME:Denies HHC/SNF: Denies hx of Pt states no concerns with going home at time of dc. Pt states no further concerns/needs. CM to follow. Advised pt to ask CM if any further questions/concerns/needs arise, voices understanding. Pt Goal: Home Plan: Home Chirag HOUGH CM
[2024-08-17] MEDS: Ciprofloxacin 400 MG/200 ML BAG 200 MG IV (10:49)
[2024-08-17] MEDS: prednisoLONE eye drops (5 mL) 1 DROP OPTH.BTL 1 DRP LEFT EYE (12:08)
--- NOTE | 2024-08-17 14:21 | PCM.DC.SUM ---
Providers Date of Admission: 08/16/24 Primary Care Physician: AICHA Quiroz Consultations 08/16/24 09:28 Consult: Gastroenterology Routine Consulting Provider: Surjit Gastroenterology Reason for Consult: choledocholithiasis EMERGENT Consult: No Notified: Yes Date Notified: 08/16/24 Time Notified: 07:56 Method of Notification: ED Physician Initiated 08/16/24 15:59 Consult: General Surgery Routine Consulting Provider: Barrett Samano Reason for Consult: cholecystectomy EMERGENT Consult: No Notified: Yes Date Notified: 08/16/24 Time Notified: 17:05 Method of Notification: Text 08/17/24 07:59 Consult: General Surgery Routine Consulting Provider: Brown Metcalf Reason for Consult: choledocholithiasis EMERGENT Consult: No Notified: Yes Date Notified: 08/17/24 Time Notified: 07:59 Method of Notification: Verbal Reason For Visit: CHOLEDOCHOLITHIASIS Diagnosis Discharge Diagnosis (1) Choledocholithiasis: Status: Acute Code(s): K80.50 - Calculus of bile duct without cholangitis or cholecystitis without obstruction Plan: Clinically patient does not appear to have acute cholangitis but there was comment on that on the CAT scan. Though the patient does have icterus and jaundice. Patient had some subjective symptoms and just feeling the need to wear warm close when weather was warm which is atypical for him. Will empirically treat him for possible cholangitis with Cipro and metronidazole. But GI has been contacted and plan is for an ERCP. Patient to be n.p.o. until then. I did reach out to Dr. Samano as this patient will eventually require a cholecystectomy. He said to reach out after the ERCP this to have the patient is doing and they will make a determination whether or not they would need to be involved inpatient versus outpatient. Did discuss with the patient and his that he will eventually need a cholecystectomy and will determine the timing of which that would need to be done. His was concerned about an upcoming [place] they have through [place] for now. I told her I am not sure how he will be feeling by then but hopefully this would be enough time with him presenting now. ERCP performed on 05/16 showed a single localized biliary stricture in the common hepatic duct and was inflammatory. Choledocholithiasis w partial obstruction was found. Complete removal was accomplished by biliary sphincterotomy and balloon extraction. Stent placed. Patient to follow up with general surgery in 3 weeks. Plan Depression: Continue with venlafaxine VTE prophylaxis with SCDs. I discussed with the patient and his . I recommended he stay one day to follow up labs, and ensure he continues to improve. Though I did say if he goes home, he would go home with abx. I left it up to him. Subsequently, the patient decided to be discharged today. Medications at Discharge Home Medications venlafaxine 150 mg capsule,extended release 24 hr 150 mg PO DAILY 06/09/24 prednisolone acetate 1 % eye drops,suspension 1 drp LEFT EYE DAILY coronary transplant 08/16/24 ciprofloxacin HCl 500 mg tablet 500 mg PO Q12H #14 tabs 08/17/24 metronidazole 500 mg tablet 500 mg PO Q8H #21 tabs 08/17/24 Hospital Course Summary of Care Provided Minutes Spent on Discharge: 35 Weight / BMI Weight Weight: 107.5 kg Body Mass Index (BMI) 28.8 ABG / Lab / Microbiology Data 08/17/24 04:59 08/17/24 04:59 Laboratory: Laboratory Results - last 24 hr 08/17/24 04:59: WBC 6.4, RBC 4.67, Hgb 14.9, Hct 42.1, MCV 90.1, MCH 31.9, MCHC 35.4, RDW Std Deviation 45.9 H, RDW Coeff of [place] 13.8, Plt Count 200, MPV 11.4, Immature Gran % (Auto) 0.500, Neut % (Auto) 63.5, Lymph % (Auto) 20.5, [place] % (Auto) 9.5, Eos % (Auto) 5.1 H, Baso % (Auto) 0.9, Absolute Neuts (auto) 4.1, Absolute Lymphs (auto) 1.32, Nucleated RBC % 0, Sodium 137, Potassium 3.7, Chloride 103, Carbon Dioxide 23.0, Anion Gap 11, BUN 11, Creatinine 0.85, Estim Creat Clear Calc 141.38, Est GFR (MDRD) Non-Af 107, BUN/Creatinine Ratio 12.5, Glucose 91, Calcium 8.8, Total Bilirubin 3.03 H, AST 118 H, ALT 470 H, Alkaline Phosphatase 197 H, Total Protein 6.1, Albumin 3.6, Globulin 2.5, Albumin/Globulin Ratio 1.5, TSH 1.580 Radiography Diagnostic Testing: Radiology Impression Endo Retro Cholangiopancreatogram 08/16/24 14:20 IMPRESSION: ERCP for biliary stent placement. Reading Location: [place] [address] D/C Instructions Discharge Diet: - ([place] diet, advance as tolerated.) DC O2, CPAP, BIPAP Needs Home O2 Discharge instructions: No Meaningful Use Info Meaningful Use Meaningful Use Diagnoses (Choose all that apply): None applicable Ischemic Stroke Statin Dosing Therapy Reference: STATIN DOSE THERAPY REFERENCE: * Patients > 75 years receive moderate or high dose statin therapy. * Patients 75 years or YOUNGER should receive HIGH intensity statin dose unless contraindicated. You will be required to document reason for non-treatment if statin daily dose does not meet guidelines. HIGH DOSE STATIN THERAPY DAILY Atorvastatin > than or = to 40 mg Rosuvastatin > than or = to 20 mg Amlodipine + Atorvastatin > than or = to 2.5/40 mg Ezetimibe + Simvastatin 10/80 mg Simvastatin 80mg Discharge Plan Admission Admit Date/Time: 08/16/24 07:53 Primary Reason for Your Visit: Choledocholithiasis Attending Provider: Joni Nelson Primary Care Provider: Zeny Charlton Consulting Providers: Barrett Samano; Brown Metcalf Instructions Additional Instructions / Restrictions: You had a stone in your bile duct and Dr. Wallace was able to remove it with the ERCP. Because he would have the jaundice as well as elevated liver tests. Those test have improved but not back to normal but I dissipate with time that this would return to normal. Your bile duct is inflamed from the stone but certainly concerning for what is called cholangitis, which is infection of the bile ducts, which can be severe. Clinically you do not look like you have cholangitis and it could just be due to inflammation from the stone there itself. But because of that concern of possible infection I will have you on antibiotics. If your abdominal pain gets worse, you start having worsening fever, notify your physician or return to the emergency room. Please follow-up with general surgery in 3 weeks about eventually having her gallbladder removed. Discharge Orders/Prescriptions Prescriptions: New ciprofloxacin HCl 500 mg tablet 500 mg PO Q12H Qty: 14 0RF metronidazole 500 mg tablet 500 mg PO Q8H Qty: 21 0RF Continued venlafaxine 150 mg capsule,extended release 24hr 150 mg PO DAILY prednisolone acetate 1 % drops,suspension 1 drp LEFT EYE DAILY Referrals / Follow Up: Barrett Samano MD [Med Staff - Active Staff] - (follow up in 3 weeks. ) Zeny Charlton NP-C [Primary Care Provider] - Within 2 Weeks Disposition Disposition (needs filled in before D/C Order can be placed): Home, Self Care Charges/Coding Visit Charges Inpatient E&M: 44337 Disch Hosp >30min
[2024-08-17 16:05] VITALS: BP 122/56; PULSE 68; RESP 14; TEMP 37; O2SAT 97
== END 2024-08-17 16:22 | disposition home or self-care (01) | DRG 445 ==
LOC: ED 06:46 → PCU 09:03 → MS3 20:33
PROVIDERS: Internal Medicine Gastroenterology; Emergency Provider Emergency Medicine; PCP Nurse Practitioner Family
PROC: 0FC98ZZ Extirpation of Matter from Common Bile Duct, Via Natural or Artificial Opening Endoscopic (ICD-10-PCS; CPT 43260; principal; 2024-08-16 16:40)
DX: K80.31 Calculus of bile duct with cholangitis, unspecified, with obstruction (principal); Q43.1 Hirschsprung's disease; K75.89 Other specified inflammatory liver diseases; F32.A Depression, unspecified; F17.220 Nicotine dependence, chewing tobacco, uncomplicated; F41.9 Anxiety disorder, unspecified; Z79.899 Other long term (current) drug therapy
CPT/HCPCS: 36415; 74177; 74330; 76000; 80053; 80076; 81001; 83690; 84443; 85025; 88108; 88305; 88313; 93005; 99285; C2625; Q9967; A4216; J0744; J2405

== ENCOUNTER 2024-10-24 09:54 | Day surgery (SDC) | payer OTHER, SELFPAY ==
[2024-10-24] VITALS (9 sets, daily range): BP systolic 124–167; BP diastolic 81–121; PULSE 65–76; RESP 14–18; TEMP 36.2–36.7; O2SAT 96–100; BMI 31.8
--- NOTE | 2024-10-24 10:07 | EKG12_ITS ---
Test Reason : PRE OP Blood Pressure : */* mmHG Vent. Rate : 68 BPM Atrial Rate : 68 BPM P-R Int : 160 ms QRS Dur : 116 ms QT Int : 390 ms P-R-T Axes : 26 -18 19 degrees QTcB Int : 414 ms Normal sinus rhythm Normal ECG When compared with ECG of 17-Aug-2024 06:40, No significant change was found Confirmed by KING VORA, KELLY ([id number]), school photograph editor CHRISTY HACKETT ([id number]) on 10/26/2024 9:45:23 AM Referred By: Zeny Charlton Confirmed By: KELLY MALIK MD
--- NOTE | 2024-10-24 10:15 | RAD_ITS ---
PROCEDURE: ERCP BILIARY/PANCREAS 10/24/2024 REASON FOR EXAM: ERCP TECHNIQUE: ERCP BILIARY/PANCREAS. Dose report: 2 minutes and 43 seconds of fluoroscopy. 63.29 mGy. 14 images were submitted. COMPARISON: Prior study dated August 16, 2024. FINDINGS: Intraoperative fluoroscopic imaging was provided for ERCP. There is dilatation of the common bile duct. A balloon catheter was used for cleaning of the duct. RAD/ERCP Biliary/Pancreas IMPRESSION: Fluoroscopic services provided for ERCP. Reading Location: [id number]
[2024-10-24] MEDS: Lactated Ringers 1,000 ML 15 ML IV (10:25)
--- NOTE | 2024-10-24 10:38 | PRE.ANES_ITS ---
ASA Classification* ASA Classification ASA Classification: 2 Assessment & Plan Anesthesia* Anesthesia Assessment Anesthesia Assessment: Discussed sedation and/or anesthesia options, risks, benefits, and alternatives with patient/parents/legal guardian/POA. Questions invited. The patient/parents/legal guardian/POA seems to understand and agrees to proceed with anesthesia plan. Reviewed the physical assessment, medical history, allergy history and patient home medications list prior to surgery/procedure/anesthetic and documented any changes. Performed airway and anesthesia risk assessments. Anesthesia Type Anesthesia Type: MAC History Source History Obtained from:: Patient and Chart Anesthesia Focused Assessment* Temperature: 98.0 F Pulse Rate: 76 Blood Pressure: 140/93 Respiratory Rate: 18 Pulse Ox: 97 Oxygen Delivery Method: Room Air Airway Assessment Mouth opens: >3 cm Mallampati Score: IV Teeth Condition: Upper (Permanent upper bridge. It is tight.) Neck Range of motion (ROM): Limited ROM (Slight Decrease) Labs Anesthesia Preop lab: CBC WBC 6.4 K/mm3 (4.4-11.0) 08/17/24 04:59 08/17/24 RBC 4.67 M/mm3 (4.6-6.2) 08/17/24 04:59 08/17/24 Hgb 14.9 g/dL (13.0-16.5) 08/17/24 04:59 08/17/24 Hct 42.1 % (40-54) 08/17/24 04:59 08/17/24 Plt Count 200 K/mm3 (150-450) 08/17/24 04:59 08/17/24 CHEMISTRY Potassium 3.7 mmol/L (3.3-5.1) 08/17/24 04:59 08/17/24 Sodium 137 mmol/L (133-145) 08/17/24 04:59 08/17/24 BUN 11 mg/dL (4-19) 08/17/24 04:59 08/17/24 Creatinine 0.85 mg/dL (0.70-1.20) 08/17/24 04:59 08/17/24 Glucose 91 mg/dL (70-99) 08/17/24 04:59 08/17/24 TSH 1.580 uIU/mL (0.300-4.200) 08/17/24 04:59 08/07 04/02 COAG Pre-Assessment Diagnosis/Proposed Procedure Planned Operative Procedure(s): ERCP REMOVAL STENT Anesthesia History Anesthesia History - preparation supervisor freezing: Anesthesia History - preparation supervisor freezing Hx Hospitalization No 10/21/24 12:07 Any Problems With Anesthesia No 10/21/24 12:07 Cholinesterase deficiency No 10/21/24 12:07 You/Your Family Experience No 10/21/24 12:07 fever (hyperthermia) with Relationship Recent Exposure to Contagious No 10/24/24 10:14 Disease Does patient have nerve No 10/21/24 12:07 stimulator Patient instructed to have device shut off --Does patient have Pacemaker No 10/24/24 10:14 or ICD? When Was Last Pacemaker Check QUESTION #4 FULL TEXT: You/Your Family Experience fever (hyperthermia) with Anesthesia Last Oral Intake Last Oral intake: Last Oral Intake NPO since 04:00 10/24/24 10:14 Meds taken in AM with sips of Yes 10/24/24 10:14 water? Meds patient instructed to EFFEXOR AND ASA 81MG 10/24/24 10:14 take am of surgery Any additional information?: Yes NPO since: 06:30 (Patient had coffee at 4 AM.) Meds taken in AM with sips of water?: Yes PONV PONV - preparation supervisor freezing: PONV - preparation supervisor freezing Female No 10/21/24 12:07 HX of Motion Sickness No 10/21/24 12:07 HX of N/V After Surgery No 10/21/24 12:07 Non-Smoker No 10/21/24 12:07 Duration of Surgery greater Yes 10/21/24 12:07 than 60 minutes Number of Risk Factors 1 10/21/24 12:07 PONV Score Low Risk 10/21/24 12:07 Height & Weight Height & Weight: Anesthesia: Height & Weight Height 6 ft 1 in 10/24/24 10:14 Weight: 109.4 kg 10/24/24 10:14 Body Mass Index (BMI) 31.8 10/24/24 10:14 Respiratory Assessment Respiratory Assessment - preparation supervisor freezing: Respiratory Tract Infection Hx - preparation supervisor freezing Hx Respiratory Tract Infection No 10/21/24 12:07 STOP Sleep Apnea STOP Sleep Apnea - preparation supervisor freezing: STOP Sleep Apnea - preparation supervisor freezing Hx Hypertension Yes 10/21/24 12:07 Hx Sleep Apnea No 10/21/24 12:07 CPAP BIPAP Do you snore loudly (louder Yes 10/21/24 12:07 than talking or can be heard Do you often feel tired/ No 10/21/24 12:07 fatigued/ sleepy during daytime? Has anyone observed you stop No 10/21/24 12:07 breathing during sleep? STOP Results Positive 10/21/24 12:07 QUESTION #5 FULL TEXT : Do you snore loudly (louder than talking or can be heard through closed doors)? Tobacco Use History Tobacco Use History - preparation supervisor freezing: Tobacco Use History - preparation supervisor freezing Tobacco Use Smoking Status Current every day smoker 10/21/24 12:07 Hx Tobacco Use Yes 10/21/24 12:07 Years Smoking Packs Smoked per Day Smoking Cessation Date was within the last 15 years Hx Smoking Cessation Date Hx Smoking Cessation Counseling Any additional information?: Yes Tobacco Use: Chew (Patient chewed tobacco at 8 AM.) Hematologic Medial History Hematologic Hx - preparation supervisor freezing: Hematologic Medical Hx - senior tableau developer Hx of Blood Transfusion No 10/21/24 12:07 Hx of Transfusion in last 3 No 10/21/24 12:07 Months Date of Last Transfusion (if within last 3 months) Ever experience any problems No 10/21/24 12:07 with transfusion(s)? Specify any problems Hx of Preganancy in last 3 N/A 10/21/24 12:07 Months Nurse Filling Out Transfusion DSCHRIBER 10/21/24 12:07 & Questions: Date: 10/21/24 10/21/24 12:07 Time: 12:08 10/21/24 12:07 Patient unable to answer at this time (ie. confused, unrespo /Reproduction History /Reproductive History - preparation supervisor freezing: /Reproductive Hx- preparation supervisor freezing Hx Now No 10/21/24 12:07 Gestational Age (in weeks): EDC: Hx Hx Para Hx Section SAB No 10/21/24 12:07 Active Medications Active Medications: Current Medications Generic Name Dose Route Start Last Admin Trade Name Freq PRN Reason Stop Dose Admin Lactated Ringer's 1,000 mls @ 15 mls/hr 10/24/24 10:30 10/24/24 10:25 IV 15 mls/hr .Q48H JOSEPH Administration PFSH Medical History History of biliary stent insertion History of Hirschsprung's disease Steatosis, liver Cataracts, bilateral Anxiety Depression Home Medications ?Medication ?Instructions ?Recorded ?Last Taken ?Type venlafaxine 150 mg 150 mg PO DAILY 06/09/24 History capsule,extended release 24 hr prednisolone acetate 1 % eye 1 drp LEFT EYE DAILY shantel nary 08/16/24 Unknown Hist ory drops,suspension transplant aspirin 81 mg tablet,delayed 81 mg PO DAILY 10/24/24 0 10/24/24 History release (Adult Aspirin Regimen) Allergy/AdvReac Type Severity Reaction Status Date / Time No Known Allergies Allergy Verified 10/24/24 10:13 Family History Grandmother Diabetes Thyroid disorder Father Heart disease Hypertension Surgical History Cornea replaced by transplant H/O colectomy Social History Smoking Status: Current every day smoker tobacco type: smokeless tobacco alcohol intake: current Alcohol type: beer substance use type: does not use what type of physical activity do you participate in: none Review of Systems (Anesthesia) ROS Narrative System reviewed and no additional complaints, except as documented.
--- NOTE | 2024-10-24 11:15 | FLU_PTH ---
PATIENT: ROOSEVELT MCKEON LOC: EN U#:[id number] AGE/SX: 49/M ROOM: RE10/24/[address]: Dr. Ehsan Wallace DO : 1975 BED: DIS: 10/24/2024 SPEC #: [id number] RECD: 10/25/24 07:33 STATUS: MILADIS REAbundio #: [id number] YOLY: 10/24/24 11:[address]: Ehsan Wallace DEPT: CYTOLOGY RECD BY: Raul Hatch ENTERED: 10/25/24 08:52 SP TYPE: Fluid OTHR DR: Zeny Charlton, AICHA Tissues: A - Bile duct, NOS Procedures: Special Stain Group II Surgery Specimen Level III Cytospin Fluid HEADER OPERATION: ERCP, stent removal PRE-OP DIAGNOSIS: Encounter for removal of biliary stent TISSUE SUBMITTED: A- Biliary stent for cytology DIAGNOSIS CYTOLOGY A. Biliary stent (cytospin, cellblock): - Essentially acellular specimen with foreign debris. CYTOLOGY STUDY Slides are reviewed. CYTOLOGY GROSS A. Received is 10ml blackish-blue stent with 0.5 ml of yellow-brown thick material labeled with the patient's name and and designated per the requisition as Biliary stent. Submitted for cytology and cell block preparation. 10/25/2024 CPT: 59551,47091
--- NOTE | 2024-10-24 11:35 | PCM.HP.STD ---
[facility] - General General Date of Admission: 10/24/24 Date of Service: 10/24/24 Chief Complaint: Stent removal HPI Narrative ROOSEVELT MCKEON, is a 49-year-old male who presents today for follow-up after recent hospitalization for choledocholithiasis. He states that he is doing well following his ERCP and stent placement. He has had no further issues of right upper quadrant pain. [facility] Medical History History of biliary stent insertion History of Hirschsprung's disease Steatosis, liver Cataracts, bilateral Anxiety Depression Home Medications ?Medication ?Instructions ?Recorded ?Last Taken ?Type venlafaxine 150 mg 150 mg PO DAILY 06/09/24 10/24/24 History capsule,extended release 24 hr prednisolone acetate 1 % eye 1 drp LEFT EYE DAILY coronary 08/16/24 Unknown History drops,suspension transplant aspirin 81 mg tablet,delayed 81 mg PO DAILY 10/24/24 10/24/24 History release (Adult Aspirin Regimen) Allergy/AdvReac Type Severity Reaction Status Date / Time No Known Allergies Allergy Verified 10/24/24 10:13 Family History Grandmother Diabetes Thyroid disorder Father Heart disease Hypertension Surgical History Cornea replaced by transplant H/O colectomy Social History Smoking Status: Current every day smoker tobacco type: smokeless tobacco alcohol intake: current Alcohol type: beer substance use type: does not use what type of physical activity do you participate in: none ROS Constitutional Constitutional: Denies fatigue, fever(s), poor appetite, weight gain or weight loss Gastrointestinal Gastrointestinal: Denies belching, bloating, change in bowel habits, change in stool character, chewing difficulty, coffee ground emesis, constipation, cramping, diarrhea, dyspepsia, dysphagia, early satiety, excessive flatus, fecal incontinence, heartburn, hematemesis, hematochezia, hemorrhoids, loose stools, melena, nausea, odynophagia, rectal bleeding, tenesmus, vomiting or weight changes Vital Signs Vital Signs Vital Signs: 10/24/24 10:14 10/24/24 10:14 10/24/24 10:46 Temperature 98.0 F 98.0 F Temperature Source Temporal Pulse Rate 76 76 Respiratory Rate 18 18 Respiratory Pattern Normal Blood Pressure 140/93 H 140/93 H Blood Pressure Mean 108 Blood Pressure Source Monitor Blood Pressure Position Sitting Blood Pressure Location Left Arm Pulse Ox 97 97 Oxygen Delivery Method Room Air Room Air Weight Weight: 241 lb 2.971 oz Body Mass Index (BMI) 31.8 Physical Exam Const alert, oriented x3, no apparent distress and healthy appearing General Appearance: cooperative GI normal to inspection, nondistended, normoactive bowel sounds, soft to palpation, non-tender and non-distended Percussion: normal to percussion Rectal Exam: deferred Assessment & Plan Assessment/Plan (1) Encounter for removal of biliary stent: PLAN: Patient will undergo stent removal or exchange. He was explained alternatives, risk and benefits include not withstanding bleeding, infection, sepsis, perforation, need for surgery . He will have an ASA of 3.
[2024-10-24] MEDS: Midazolam 2 MG/2 ML Syringe IV (15:18)
[2024-10-24] MEDS: Lidocaine 1% (5 ml sdv) 5 ML Vial 10 ML IV (15:19)
[2024-10-24] MEDS: fentaNYL 100 MCG/2 ML Ampul IV (15:31)
--- NOTE | 2024-10-24 16:20 | OP.ERCP_ITS ---
Patient Name: Aiden Elliott Procedure Date: 10/24/2024 2:11 PM Date of : 1975 Age: 49 Procedure: ERCP Indications: Bile duct stone(s), Biliary stent removal Providers: Ehsan Wallace DO Referring MD: Reva Quiroz Medicines: Monitored Anesthesia Care Patient Profile: This is a 49 year old male. Refer to note in patient chart for documentation of history and physical. Patient has symptoms of acute right upper quadrant abdominal pain and chronic right upper quadrant abdominal pain. He is status post laparoscopic cholecystectomy within the past three months. Complications: No immediate complications. Procedure: Pre-Anesthesia Assessment: - Prior to the procedure, a History and Physical was performed, and patient medications and allergies were reviewed. The patient is competent. The risks and benefits of the procedure and the sedation options and risks were discussed with the patient. All questions were answered and informed consent was obtained. Patient identification and proposed procedure were verified by the physician in the pre-procedure area. Mental Status Examination: alert and oriented. Airway Examination: normal oropharyngeal airway and neck mobility. Respiratory Examination: clear to auscultation. CV Examination: normal. Prophylactic Antibiotics: The patient does not require prophylactic antibiotics. Prior Anticoagulants: The patient has taken no anticoagulant or antiplatelet agents. ASA Grade Assessment: II - A patient with mild systemic disease. After reviewing the risks and benefits, the patient was deemed in satisfactory condition to undergo the procedure. The anesthesia plan was to use monitored anesthesia care (MAC). Immediately prior to administration of medications, the patient was re-assessed for adequacy to receive sedatives. The heart rate, respiratory rate, oxygen saturations, blood pressure, adequacy of pulmonary ventilation, and response to care were monitored throughout the procedure. The physical status of the patient was re-assessed after the procedure. After obtaining informed consent, the scope was passed under direct vision. Throughout the procedure, the patient's blood pressure, pulse, and oxygen saturations were monitored continuously. The Duodenoscope was introduced through the mouth, and advanced to the duodenum and used to inject contrast into the bile duct. The ERCP was accomplished without difficulty. The patient tolerated the procedure well. Scope In: 3:29:13 PM Scope Out: 4:10:25 PM Total Procedure Duration Time 0 hours 41 minutes 12 seconds Findings: A biliary stent was visible on the lab rn film. The esophagus was successfully intubated under direct vision. The scope was advanced to a normal major papilla in the descending duodenum without detailed examination of the pharynx, larynx and associated structures, and upper GI tract. The upper GI tract was grossly normal. The bile duct was deeply cannulated with the short-nosed traction sphincterotome. Contrast was injected. I personally interpreted the bile duct images. Ductal flow of contrast was adequate. Image quality was adequate. Contrast extended to the entire biliary tree. Opacification of the entire biliary tree except for the gallbladder, main bile duct, common bile duct, cystic duct, common hepatic duct, left and right hepatic ducts and all intrahepatic branches and entire biliary tree was successful. The maximum diameter of the ducts was 12 mm. The lower third of the main bile duct contained two stones, the largest of which was 6 mm in diameter. The entire biliary tree except for the gallbladder, main bile duct and entire biliary tree were markedly dilated and diffusely dilated, with a stone causing an obstruction. The largest diameter was 15 mm. A cholecystectomy had been performed. A long 0.025 inch Jagwire was passed into the biliary tree. A 5 mm biliary sphincterotomy was made with a monofilament traction (standard) sphincterotome using ERBE electrocautery. Moderate bleeding from the sphincterotomy stopped within 5 minutes. The biliary tree was swept with a 15 mm balloon starting at the upper third of the main bile duct, middle third of the main bile duct, lower third of the main duct, bifurcation, left intrahepatic duct(s), left main hepatic duct, right intrahepatic duct(s) and right main hepatic duct. Two stones were removed. All stones remained. One stent was removed from the biliary tree using a snare and sent for cytology. The stent was found to be partially occluded via the water column test. The lower third of the main bile duct, common bile duct and the hepatic duct bifurcation were successfully dilated with a 10-11-12 mm balloon (to a maximum balloon size of 10 mm) dilator. Impression: - The entire main bile duct and entire biliary tree were markedly dilated, with a stone causing an obstruction. - The patient has had a cholecystectomy. - Choledocholithiasis was found. Removal was not accomplished; no stent was inserted. - A biliary sphincterotomy was performed. - The biliary tree was swept. - One stent was removed from the biliary tree. - The lower third of the main bile duct, common bile duct and the hepatic duct bifurcation were successfully dilated. Procedure Code(s): --- Professional --- 55394, 59, Endoscopic retrograde cholangiopancreatography (ERCP); with trans-endoscopic balloon dilation of biliary/pancreatic duct(s) or of ampulla (sphincteroplasty), including sphincterotomy, when performed, each duct 98369, 59,51, Endoscopic retrograde cholangiopancreatography (ERCP); with trans-endoscopic balloon dilation of biliary/pancreatic duct(s) or of ampulla (sphincteroplasty), including sphincterotomy, when performed, each duct 23706, Endoscopic retrograde cholangiopancreatography (ERCP); with removal of foreign body(s) or stent(s) from biliary/pancreatic duct(s) 59006, Endoscopic retrograde cholangiopancreatography (ERCP); with removal of calculi/debris from biliary/pancreatic duct(s) 66978, 26, Endoscopic catheterization of the biliary ductal system, radiological supervision and interpretation CPT copyright 2021 [employer]. All rights reserved. The codes documented in this report are preliminary and upon magnaflux operator review may be revised to meet current compliance requirements. Ehsan Wallace DO 10/24/2024 4:19:39 PM This report has been signed electronically. Number of Addenda: 0 Note Initiated On: 10/24/2024 2:11 PM
--- NOTE | 2024-10-24 16:20 | OP.PROVAT_ITS ---
10/24/2024 Reva Quiroz Re : ERCP procedure for Aiden Jack Zoltan This procedure was performed on Thursday, October 24, 2024. My impressions and recommendations are as follows: Impressions : - The entire main bile duct and entire biliary tree were markedly dilated, with a stone causing an obstruction. - The patient has had a cholecystectomy. - Choledocholithiasis was found. Removal was not accomplished; no stent was inserted. - A biliary sphincterotomy was performed. - The biliary tree was swept. - One stent was removed from the biliary tree. - The lower third of the main bile duct, common bile duct and the hepatic duct bifurcation were successfully dilated. Recommendations : My findings are described in the full procedure note, which is enclosed. If I can be of further assistance, please feel free to contact me at . Sincerely, Ehsan Wallace, 10/24/2024 4:19:39 PM This report has been signed electronically.
--- NOTE | 2024-10-24 16:25 | PCM.POST.ANE ---
Anesthesia: Postop Eval I Current Vital Signs Temperature: 97.1 F Pulse Rate: 73 Blood Pressure: 167/81 Respiratory Rate: 14 Pulse Ox: 98 Assessment Airway patent: Yes Spontaneous unlabored respirations: Yes nausea: No Vomiting: No Anesthesia Complication: No Fluid Hydration Crystalloid volume administer (ml): 800 Total IV fluid infused: 800 Progress Note Anesthesia document: Postop Eval 1 completed: Yes
--- NOTE | 2024-10-24 21:05 | POSTOPAN2_ITS ---
Anesthesia Postop Eval I Sum Postop Eval Completion status Anesthesia document: Postop Eval 1 completed: Yes Anesthesia Postop Eval I Summary Anesthesia Postop Eval I Summary: Anesthesia Postop Eval I: Assessment Summary Airway patent Yes 10/24/24 16:26 RIBBON [email or web address] [email or web address] Spontaneous unlabored Yes 10/24/24 16:26 RIBBON LAPPER [email or web address].TNES respirations Mental status nausea No 10/24/24 16:26 RIBBON LAPPER [email or web address].TNES Vomiting No 10/24/24 16:26 RIBBON [email or web address] [email or web address].[email or web address] Anesthesia Postop Eval I: Fluid Summary Crystalloid volume administer 800 10/24/24 16:26 RIBBON [email or web address] [email or web address].TNES (ml) Colloids volume administered ( ml) Blood Product volume administered (ml) Total IV fluid infused 800 10/24/24 16:26 RIBBON [email or web address] [email or web address] Anesthesia Postop Eval I: Summary Notes Anesthesia Complication No 10/24/24 16:26 RIBBON [email or web address] [email or web address] Anesthesia Complication Comment: Post-operative progress note Anesthesia: Postop Eval II Evaluation Mental status: Awake and Calm Pain Level: 1 nausea: No Vomiting: No Complications Anesthesia Complication: No
--- NOTE | 2024-10-24 21:05 | PCM.POSTANE2 ---
Anesthesia Postop Eval I Sum Postop Eval Completion status Anesthesia document: Postop Eval 1 completed: Yes Anesthesia Postop Eval I Summary Anesthesia Postop Eval I Summary: Anesthesia Postop Eval I: Assessment Summary Airway patent Yes 10/24/24 16:26 OPEN CLAIMS REPRESENTATIVE.TNES Spontaneous unlabored Yes 10/24/24 16:26 OPEN CLAIMS REPRESENTATIVE.TNES respirations Mental status nausea No 10/24/24 16:26 OPEN CLAIMS REPRESENTATIVE.TNES Vomiting No 10/24/24 16:26 OPEN CLAIMS REPRESENTATIVE.TNES Anesthesia Postop Eval I: Fluid Summary Crystalloid volume administer 800 10/24/24 16:26 OPEN CLAIMS REPRESENTATIVE.TNES (ml) Colloids volume administered ( ml) Blood Product volume administered (ml) Total IV fluid infused 800 10/24/24 16:26 OPEN CLAIMS REPRESENTATIVE.TNES Anesthesia Postop Eval I: Summary Notes Anesthesia Complication No 10/24/24 16:26 OPEN CLAIMS REPRESENTATIVE.TNES Anesthesia Complication Comment: Post-operative progress note Anesthesia: Postop Eval II Evaluation Mental status: Awake and Calm Pain Level: 1 nausea: No Vomiting: No Complications Anesthesia Complication: No
== END 2024-10-24 17:03 | disposition home or self-care (01) ==
LOC: EN 09:55 → AC 10:00
PROVIDERS: PCP Nurse Practitioner Family; Referring Provider Nurse Practitioner Family; Visit Provider Internal Medicine Gastroenterology
PROC: (CPT 43260; principal; 2024-10-24 10:55)
DX: Z46.59 Encounter for fitting and adjustment of other gastrointestinal appliance and device (principal); Z79.82 Long term (current) use of aspirin; F17.220 Nicotine dependence, chewing tobacco, uncomplicated; Z90.49 Acquired absence of other specified parts of digestive tract; K80.51 Calculus of bile duct without cholangitis or cholecystitis with obstruction
CPT/HCPCS: 43277; 43275; 74330; 76000; 88108; 88304; 88313; 93005; C1726

== ENCOUNTER → 2024-11-08 | Outpatient (CLI) | payer OTHER, SELFPAY ==
[2024-11-08 10:24] LABS: AST(SGOT) 27 U/L (<=37); Alanine Aminotransfer ALT/SGPT 33 U/L (<=46); Albumin, Serum 4.7 g/dL (3.5-5.0); Alkaline Phosphatase 91 U/L (40-129); Bilirubin, Direct 0.20 mg/dL (0.00-0.30); Globulin 2.9 g/dL (2.2-4.2)
== END | disposition home or self-care (01) ==
LOC: LAB 08:54
PROVIDERS: PCP Nurse Practitioner Family; Referring Provider Nurse Practitioner Acute Care; Visit Provider Nurse Practitioner Acute Care
DX: Z12.11 Encounter for screening for malignant neoplasm of colon (principal); R74.8 Abnormal levels of other serum enzymes
CPT/HCPCS: 36415; 80076